=== PATIENT | male | born 1945 | race Caucasian/White ===

== ENCOUNTER 2017-08-27 12:25 | Inpatient (IN) | payer MEDICARE, OTHER ==
--- NOTE | 2017-08-27 13:32 | ER Document Report ---
ED Respiratory Problem - General Chief Complaint: Breathing Difficulty Stated Complaint: DIFFICULTY BREATHING Time Seen by Provider: 08/27/17 13:30 Notes: Patient is here because he has been coughing for the past 5 days and having a hard time breathing. He has been diagnosed as having COPD and is on home oxygen at nighttime, but continues to smoke cigarettes. He is complaining of generalized aching of the front of his chest, he attributes to coughing so hard to get up the phlegm. He is getting up a thick yellow phlegm. Has not had any fever, however. He went to a local urgent care and was found to have a low oxygen level and a low blood pressure and was referred here. Patient says he is only been drinking about a pint of fluid a day for the past few days and has had no appetite for food. Denies any nausea or vomiting. Does not have home nebs. TRAVEL OUTSIDE OF THE [place] IN LAST 30 DAYS: No - Related Data Allergies/Adverse Reactions: No Known Allergies Allergy (Verified 08/27/17 12:27) Past Medical History - Social History Smoking Status: Current Every Day Smoker Chew tobacco use (# tins/day): No Frequency of alcohol use: former Drug Abuse: None Family History: Reviewed & Not Pertinent Patient has suicidal ideation: No Patient has homicidal ideation: No - Past Medical History Cardiac Medical History: Reports: Hx Hypercholesterolemia, Hx Hypertension, Other - Has had multiple coronary artery stents. Denies: Hx Heart Attack Pulmonary Medical History: Reports: Hx Bronchitis, Hx COPD Endocrine Medical History: Denies: Hx Diabetes Mellitus Type 1, Hx Diabetes Mellitus Type 2 Past Surgical History: Reports: Hx Appendectomy, Hx Cardiac Catheterization - stents x5, Hx Tonsillectomy Review of Systems - Review of Systems Notes: REVIEW OF SYSTEMS: CONSTITUTIONAL : Denies fever. EENT: Denies eye, ear, nose or mouth or throat pain or other symptoms. CARDIOVASCULAR: See HPI. RESPIRATORY: see HPI. GASTROINTESTINAL: Denies abdominal pain or nausea, vomiting, or diarrhea. GENITOURINARY: Denies difficulty or painful urinating, urinary frequency, blood in urine. MUSCULOSKELETAL: Denies back or neck pain. Denies joint pain or swelling. SKIN: Denies rash or skin lesions. NEUROLOGICAL: Denies LOC or altered mental status. Denies headache. Denies sensory loss or motor deficits. ALL OTHER SYSTEMS REVIEWED AND NEGATIVE. Physical Exam - Vital signs Vitals: Temp Pulse Resp BP Pulse Ox 98.4 F 102 H 18 89/39 L 86 L 08/27/17 12:27 08/27/17 12:27 08/27/17 12:27 08/27/17 12:27 08/27/17 12:27 Interpretation: Hypotensive, Hypoxic - Notes Notes: PHYSICAL EXAMINATION: GENERAL: Well-appearing, in no acute distress. O2 sat and blood pressure low in triage. HEAD: Atraumatic, normocephalic. EYES: Pupils equal round and reactive to light, extraocular movements intact. ENT: oropharynx clear without exudates. Moist mucous membranes. NECK: Normal range of motion, supple. LUNGS: Breath sounds are distant and sound tight. Scattered wheezes heard. No chest wall tenderness. HEART: Regular rate and rhythm without murmurs. ABDOMEN: Soft, nontender. No guarding or rebound. No masses. BACK: No tenderness throughout entire back. EXTREMITIES: Normal range of motion without pain. No swelling and negative Homans bilaterally. NEUROLOGICAL: Normal speech, normal gait. Normal sensory, motor, and reflex exams. Awake, alert, and oriented x3. Cranial nerves normal. PSYCH: Normal mood, normal affect. SKIN: Warm, dry, no rashes. Course - Re-evaluation Re-evalutation: 08/27/17 16:41 Patient has had 2 L of fluid. He just got up to go to the bathroom and came back to the bed while I was in the room and is diaphoretic and his heart rate is picked up to 112, calculated by me at the bedside. Patient's chest x-ray shows COPD, but no pneumonia. Labs are all essentially normal. 08/27/17 17:32 Patient continues to show somewhat low blood pressure even into his third liter of saline. He also was up to the bathroom and when he came out, he was quite diaphoretic and showed significantly labored breathing. His heart rate was 112 by my count. His oxygen level on room air at that time was 88%. Spoke with the hospitalist who will admit him for further care inpatient. - Vital Signs Vital signs: Temp Pulse Resp BP Pulse Ox 98.2 F 110 H 22 H 112/72 88 L 08/27/17 16:45 08/27/17 16:45 08/27/17 16:45 08/27/17 16:45 08/27/17 16:45 - Laboratory Result Diagrams: 08/27/17 12:50 08/27/17 12:50 Laboratory results interpreted by me: 08/27/17 08/27/17 12:50 12:50 Plt Count 136 L Seg Neutrophils % 80.4 H Lymphocytes % 6.7 L Sodium 133.9 L Chloride 85 L Carbon Dioxide 34 H BUN 23 H AST 76 H - Diagnostic Test Radiology results interpreted by me: 08/27/17 16:43 Chest x-ray shows COPD and otherwise normal. No infiltrates. - EKG Interpretation by Id EKG shows normal: Sinus rhythm Rate: Normal - 102 Rhythm: NSR P Waves: ROBIN Discharge - Discharge Clinical Impression: COPD exacerbation, Hypoxia, Hypotension, Dehydration Disposition: ADMITTED OBSERVATION Admitting Provider: Hospitalist Unit Admitted: Telemetry Referrals: CLINT WOODS FNP [Primary Care Provider] - Follow up as needed
[2017-08-27] MEDS ORDERED: METHYLPREDNISOLONE INJ 125 MG/2 ML SDV IV ONE (13:33)
[2017-08-27] MEDS ORDERED: IPRATROPIUM/ALBUTEROL 0.5-2.5 MG/3 ML AMPUL NEB ONE ×2 (13:33→18:46)
--- NOTE | 2017-08-27 14:31 | RADIOLOGY REPORT (SQ) ---
EXAM DESCRIPTION: CHEST PA/LAT COMPLETED DATE/TIME: 08/27/2017 2:20 pm REASON FOR STUDY: COPD, congestion, low O2 COMPARISON: 08/29/2009. NUMBER OF VIEWS: Two view. TECHNIQUE: Frontal and lateral radiographic views of the chest acquired. LIMITATIONS: None. FINDINGS: LUNGS AND PLEURA: No opacities, masses or pneumothorax. No pleural effusion. Attenuated bl ood vessels and flattened rodríguez-diaphragms. MEDIASTINUM AND HILAR STRUCTURES: No masses. No contour abnormalities. HEART AND VASCULAR STRUCTURES: Heart normal in size and contour. No evidence for failure. BONES: No acute findings. HARDWARE: None in the chest. OTHER: No other significant finding. IMPRESSION: COPD. NO ACUTE RADIOGRAPHIC FINDING IN THE CHEST. TECHNICAL DOCUMENTATION: JOB ID: [id number] [employer]- All Rights Reserved
[2017-08-27] MEDS ORDERED: ALBUTEROL SULFATE 0.083% NEB 2.5 MG/3 ML AMPUL NEB ONE (14:50)
[2017-08-27] MEDS: NORMAL SALINE 1000 ML 1,000 ML IV PRN ×2 (14:51→14:59)
[2017-08-27 15:18] LABS: ABSOLUTE LYMPHOCYTES (AUTO) 0.5 10^3/uL (0.5-4.7); ABSOLUTE MONOCYTES (AUTO) 0.9 10^3/uL (0.1-1.4); ABSOLUTE NEUT (AUTO) 5.7 10^3/uL (1.7-8.2); BASOPHILS % (AUTO) 0.2 % (0-2); HEMOGLOBIN 16.6 g/dL (13.5-17.0); LYMPHOCYTES % (AUTO) 6.7 % (13-45); MEAN CORPUSCULAR HEMOGLOBIN 30.3 pg (27.0-33.4); MEAN CORPUSCULAR HGB CONC 33.2 g/dL (32.0-36.0); MEAN CORPUSCULAR VOLUME 91 fl (80-97); MONOCYTES % (AUTO) 12.7 % (3-13); PLATELET COUNT 136 10^3/uL (150-450); RED BLOOD COUNT 5.47 10^6/uL (4.35-5.55); RED CELL DISTRIBUTION WIDTH 13.8 % (11.5-14.0); SEGMENTED NEUTROPHILS % (AUTO) 80.4 % (42-78); TOTAL CELLS COUNTED % (AUTO) 100 %; WHITE BLOOD COUNT 7.1 10^3/uL (4.0-10.5)
[2017-08-27 15:29] LABS: ALANINE AMINOTRANSFERASE 55 U/L (21-72); ALBUMIN 4.1 g/dL (3.5-5.0); ALKALINE PHOSPHATASE 87 U/L (38-126); ANION GAP 15 (5-19); ASPARTATE AMINO TRANSFERASE 76 U/L (17-59); BILIRUBIN,DIRECT 0.4 mg/dL (0.0-0.4); BILIRUBIN,TOTAL 0.5 mg/dL (0.2-1.3); BLOOD UREA NITROGEN 23 mg/dL (7-20); CALCIUM 9.1 mg/dL (8.4-10.2); CARBON DIOXIDE 34 mmol/L (22-30); CHLORIDE 85 mmol/L (98-107); GLUCOSE 109 mg/dL (75-110); POTASSIUM 4.2 mmol/L (3.6-5.0); SODIUM 133.9 mmol/L (137-145)
[2017-08-27 15:41] LABS: CREATINE KINASE MB 2.11 ng/mL (<4.55)
[2017-08-27 15:47] LABS: TROPONIN I 0.092 ng/mL
[2017-08-27] MEDS ORDERED: CEFTRIAXONE 1 GM/D5W RTU 1 GM/50 ML RTUPB IV ONE (17:31)
[2017-08-27] MEDS ORDERED: NORMAL SALINE 1000 ML 1,000 ML IV ONE (17:44)
[2017-08-27] MEDS ORDERED: 1/2 NORMAL SALINE 1,000 ML IV PRN (19:03)
[2017-08-27] MEDS ORDERED: ACETAMINOPHEN 325 MG TABLET PO PRN (19:03)
[2017-08-27] MEDS ORDERED: ALBUTEROL SULFATE 0.083% NEB 2.5 MG/3 ML AMPUL NEB PRN (19:03)
--- NOTE | 2017-08-27 19:03 | PDOC H&P ---
History of Present Illness Admission Date/PCP: 08/27/17 17:58 AZAEL YOUNG History of Present Illness: LISA AVILA is a 71 year old male who presented to the emergency department after being referred by the urgent care clinic for hypotension and hypoxemia. The patient has known COPD. He believes that he is supposed to be taking Brio, but, he has been unable to afford this medication and therefore he is only using Ventolin. Patient is a long-term smoker. He has cut back from greater than a pack per day to about three quarters of a pack per day. Over the last 3 days he has had increasing cough with increasing shortness of breath. His cough is purulent and he is coughing up thick, yellow phlegm. He has not had any hemoptysis. He does not have a fever and he does not have a sore throat. He has no pain with swallowing. He has no nausea, vomiting or diarrhea but he has been eating very poorly. When his daughter took him to the urgent care clinic she stated that his nose looked blue. The patient also has a significant coronary history and has had 5 stents placed in the past. His out of school hours care worker is Dr. Sharma at [facility]. Currently, the patient and his family are unable to provide me with the medication list. The patient's daughter is going to bring the medication list to the hospital as soon as possible. Past Medical History Cardiac Medical History: Reports: Coronary Artery Disease, Hyperlipidema, Hypertension, Other - Has had multiple coronary artery stents. Denies: Myocardial Infarction Pulmonary Medical History: Reports: Bronchitis, Chronic Obstructive Pulmonary Disease (COPD) Endocrine Medical History: Denies: Diabetes Mellitus Type 1, Diabetes Mellitus Type 2 Past Surgical History Past Surgical History: Reports: Appendectomy, Cardiac Catheterization - stents x5, Tonsillectomy Social History Smoking Status: Current Every Day Smoker - Advance Directive Resuscitation Status: Full Code Surrogate healthcare decision maker:: The patient appoints his , Angie Avila to be his surrogate decision maker. She can be reached at [phone]. Family History Family History: Reviewed & Not Pertinent Parental Family History Reviewed: Yes Children Family History Reviewed: Yes Sibling(s) Family History Reviewed.: Yes - Mother age 53 of bone cancer, father age 60 of congestive heart failure, 2 brothers have coronary artery disease and a daughter has hypertension. Medication/Allergy Allergies/Adverse Reactions: No Known Allergies Allergy (Verified 08/27/17 12:27) Review of Systems Constitutional: PRESENT: anorexia, fatigue, weakness Eyes: ABSENT: as per HPI, visual disturbances, other Ears: ABSENT: as per HPI, hearing changes, other Nose, Mouth, and Throat: ABSENT: as per HPI, headache(s), mouth pain, sore throat, vertigo, other Breasts: ABSENT: as per HPI, other Cardiovascular: ABSENT: as per HPI, chest pain, dyspnea on exertion, edema, orthropnea, palpitations, other Respiratory: PRESENT: cough, dyspnea, sputum Gastrointestinal: ABSENT: as per HPI, abdominal pain, bloating, coffee ground emesis, constipation, diarrhea, dysphagia, heartburn, hematemesis, hematochezia , melena, nausea, vomiting, other Genitourinary: ABSENT: as per HPI, difficulty urinating, dysuria, hematuria, nocturia, other Musculoskeletal: ABSENT: as per HPI, back pain, deformity, joint swelling, muscle weakness, other Neurological: ABSENT: as per HPI, abnormal gait, abnormal movements, abnormal speech, confusion, convulsions, dizziness, focal weakness, frequent falls, lack of coordination, memory loss, numbness, paresthesias, restless legs, syncope, tingling, tremor(s), vertigo, weakness, other Psychiatric: ABSENT: as per HPI, anxiety, depression, hallucinations, homidical ideation, suicidal ideation, other Endocrine: ABSENT: as per HPI, cold intolerance, flushing, heat intolerance, menstrual abnormalities, polydipsia, polyphagia, polyuria, other Hematologic/Lymphatic: ABSENT: as per HPI, easy bleeding, easy bruising, lymphadenopathy, other Allergic/Immunologic: ABSENT: as per HPI, seasonal rhinorrhea, other Physical Exam Vital Signs: Temp Pulse Resp BP Pulse Ox 98.2 F 110 H 22 H 112/72 88 L 08/27/17 16:45 08/27/17 16:45 08/27/17 16:45 08/27/17 16:45 08/27/17 16:45 Additional comments: The patient appears to be older than his stated age. He appears to be in chronically poor health. He is alert and oriented. He appears to be in good spirits. His facial appearance is unremarkable. He does have both upper and lower dentures. Otherwise, his oropharynx is benign. His neck is supple. He does not have JVD. His trachea is midline. He does not have any palpable cervical adenopathy present. His lungs are fairly diminished but he does have end expiratory wheezing present in all lung bhatia. His cardiac exam is regular. I do not appreciate any murmurs, gallops or rubs. The abdomen is soft. Bowel sounds are present. There is no guarding or rebound noted and there are no hernias or masses present. The lower extremities are warm to touch without pitting edema. The skin is warm, dry and intact without lesions or rashes. Results Impressions: Chest X-Ray 08/27/17 13:32 IMPRESSION: COPD. NO ACUTE RADIOGRAPHIC FINDING IN THE CHEST. Assessment & Plan - Diagnosis (1) COPD exacerbation Is this a current diagnosis for this admission?: Yes Plan: Patient clearly has a COPD exacerbation. He will be treated with antibiotics, systemic corticosteroids and bronchodilators. (2) Dehydration Is this a current diagnosis for this admission?: Yes Plan: Continue IV fluid replacement. (3) Hypotension Is this a current diagnosis for this admission?: Yes Plan: Hold blood pressure medications. Treat with IV fluids overnight. (4) Hypoxia Is this a current diagnosis for this admission?: Yes Plan: Treat with supplemental oxygen, but, we do not want high oxygen saturations. Want them in the low 90s. (5) Pneumonia Is this a current diagnosis for this admission?: Yes Plan: The patient has gram-positive cocci in pairs and chains on sputum culture. This is suspicious for pneumococcal bronchitis or pneumonia. He will be started empirically on therapy for community-acquired pneumonia pending cultures. Chest x-ray is fairly unremarkable, however, he is hypotensive. He may in fact develop an infiltrate after he is fluid resuscitated. (6) Elevated liver function tests Is this a current diagnosis for this admission?: Yes Plan: AST is elevated. This could be medication effect. We will need to trend labs. (7) Sinus tachycardia by electrocardiogram Is this a current diagnosis for this admission?: Yes Plan: Sinus tachycardia is an appropriate response to hypotension. In addition, his tachycardia is likely associated with his current illness. - Time Time Spent: 50 to 70 Minutes - Inpatient Certification Medical Necessity: Significant Comorbidiites Make Outpatient Treatment Too Risky , Need Close Monitoring Due to Risk of Patient Decompensation, Need For IV Fluids, Need For Continuous Telemetry Monitoring, Need for IV Antibiotics - Plan Summary Plan Summary: She will be placed on inpatient status. Clearly, he will need greater than 2 midnights to correct his hypotension, COPD exacerbation and potential pneumonia.
[2017-08-27] MEDS ORDERED: METHYLPREDNISOLONE INJ 125 MG/2 ML SDV IV SCH (19:30)
[2017-08-27] MEDS: IPRATROPIUM/ALBUTEROL 0.5-2.5 MG/3 ML AMPUL NEB SCH ×2 (19:46→20:00)
[2017-08-27] MEDS ORDERED: ENOXAPARIN SODIUM INJ 40 MG/0.4 ML DISP.SYRIN SUBCUT ONE (20:30)
[2017-08-27 20:33] LABS: CREATINE KINASE MB 2.89 ng/mL (<4.55); TROPONIN I 0.083 ng/mL
[2017-08-27 20:40] LABS: A TYPE INFLUENZA AG NEGATIVE (NEGATIVE); B INFLUENZA AG NEGATIVE (NEGATIVE)
[2017-08-27] MEDS: GUAIFENESIN 600 MG TABLET.SA PO SCH (21:33)
[2017-08-27] MEDS: FAMOTIDINE 20 MG TABLET PO SCH (21:34)
[2017-08-27] MEDS: METHYLPREDNISOLONE INJ 40 MG/1 ML SDV IV SCH (21:35)
[2017-08-27] MEDS ORDERED: AZITHROMYCIN 500 MG in DEXTROSE 5%-WATER 250 ML IV SCH (22:00)
[2017-08-27 22:19] LABS: APPEARANCE,URINE SLIGHTLY-CLOUDY; BILIRUBIN,URINE NEGATIVE (NEGATIVE); COLOR,URINE YELLOW; GLUCOSE, URINE NEGATIVE (NEGATIVE); KETONES,URINE NEGATIVE (NEGATIVE); LEUKOCYTE ESTERASE,URINE NEGATIVE (NEGATIVE); NITRITE,URINE NEGATIVE (NEGATIVE); PROTEIN,URINE NEGATIVE (NEGATIVE); URINE SPECIFIC GRAVITY 1.017; UROBILINOGEN,URINE NEGATIVE mg/dL (<2.0)
[2017-08-28 02:14] LABS: CREATINE KINASE MB 4.07 ng/mL (<4.55); TROPONIN I 0.063 ng/mL
[2017-08-28] MEDS: METHYLPREDNISOLONE INJ 40 MG/1 ML SDV IV SCH ×3 (05:59→22:47)
[2017-08-28] MEDS: IPRATROPIUM/ALBUTEROL 0.5-2.5 MG/3 ML AMPUL NEB SCH ×3 (08:25→19:57)
[2017-08-28 09:17] LABS: CREATINE KINASE MB 5.31 ng/mL (<4.55); TROPONIN I 0.11 ng/mL
[2017-08-28] MEDS: ENOXAPARIN SODIUM INJ 40 MG/0.4 ML DISP.SYRIN SUBCUT SCH (10:06)
[2017-08-28] MEDS: ASPIRIN 81 MG TABLET, ENT COATED PO SCH (10:07)
[2017-08-28] MEDS: FAMOTIDINE 20 MG TABLET PO SCH ×2 (10:07→22:47)
[2017-08-28] MEDS: GUAIFENESIN 600 MG TABLET.SA PO SCH ×2 (10:07→22:47)
[2017-08-28] MEDS: NORMAL SALINE 1000 ML 1,000 ML IV PRN (10:08)
--- NOTE | 2017-08-28 10:35 | EKG REPORT ---
SEVERITY:- ABNORMAL ECG - SINUS TACHYCARDIA RIGHT ATRIAL ABNORMALITY LEFT ANTERIOR FASCICULAR BLOCK CONSIDER ANTEROSEPTAL INFARCT : Confirmed by: Elina Peter 28-Aug-2017 10:34:52
[2017-08-28] MEDS ORDERED: CEFTRIAXONE 1 GM/D5W RTU 1 GM/50 ML RTUPB IV SCH (18:00)
--- NOTE | 2017-08-28 19:11 | EKG REPORT ---
SEVERITY:- ABNORMAL ECG - SINUS RHYTHM LEFT ANTERIOR FASCICULAR BLOCK LOW VOLTAGE THROUGHOUT CONSIDER ANTEROSEPTAL INFARCT : Confirmed by: Elina Peter 28-Aug-2017 19:10:37
[2017-08-28] MEDS: LEVOFLOXACIN 750 MG/D5W RTU 750 MG/150 ML RTUPB IV SCH (20:33)
[2017-08-28] MEDS: CEFEPIME 1 GM/D5W RTU 1 GM/50 ML RTUPB IV SCH (22:47)
[2017-08-29] MEDS: METHYLPREDNISOLONE INJ 40 MG/1 ML SDV IV SCH ×2 (05:11→14:21)
[2017-08-29 05:33] LABS: ABSOLUTE LYMPHOCYTES (AUTO) 0.4 10^3/uL (0.5-4.7); ABSOLUTE MONOCYTES (AUTO) 0.6 10^3/uL (0.1-1.4); ABSOLUTE NEUT (AUTO) 5.4 10^3/uL (1.7-8.2); BASOPHILS % (AUTO) 0.1 % (0-2); HEMATOCRIT 42.6 % (37.9-51.0); LYMPHOCYTES % (AUTO) 6.4 % (13-45); MEAN CORPUSCULAR HEMOGLOBIN 29.7 pg (27.0-33.4); MEAN CORPUSCULAR HGB CONC 32.6 g/dL (32.0-36.0); MEAN CORPUSCULAR VOLUME 91 fl (80-97); MONOCYTES % (AUTO) 9.1 % (3-13); RED BLOOD COUNT 4.67 10^6/uL (4.35-5.55); RED CELL DISTRIBUTION WIDTH 13.5 % (11.5-14.0); SEGMENTED NEUTROPHILS % (AUTO) 84.4 % (42-78); TOTAL CELLS COUNTED % (AUTO) 100 %; WHITE BLOOD COUNT 6.4 10^3/uL (4.0-10.5)
[2017-08-29 05:45] LABS: ANION GAP 6 (5-19); BLOOD UREA NITROGEN 15 mg/dL (7-20); CALCIUM 8.1 mg/dL (8.4-10.2); CARBON DIOXIDE 36 mmol/L (22-30); CHLORIDE 93 mmol/L (98-107); GLUCOSE 117 mg/dL (75-110); MAGNESIUM 2.3 mg/dL (1.6-2.3); POTASSIUM 4.6 mmol/L (3.6-5.0)
[2017-08-29 05:53] LABS: HEMOGLOBIN 13.9 g/dL (13.5-17.0)
[2017-08-29 05:54] LABS: PLATELET COUNT 82 10^3/uL (150-450)
[2017-08-29] MEDS: IPRATROPIUM/ALBUTEROL 0.5-2.5 MG/3 ML AMPUL NEB SCH ×4 (08:57→19:51)
[2017-08-29] MEDS: GUAIFENESIN 600 MG TABLET.SA PO SCH ×2 (10:57→21:50)
[2017-08-29] MEDS: FAMOTIDINE 20 MG TABLET PO SCH ×2 (10:57→21:51)
[2017-08-29] MEDS: ASPIRIN 81 MG TABLET, ENT COATED PO SCH (10:57)
[2017-08-29] MEDS: CEFEPIME 1 GM/D5W RTU 1 GM/50 ML RTUPB IV SCH ×2 (10:57→21:51)
[2017-08-29] MEDS: ENOXAPARIN SODIUM INJ 40 MG/0.4 ML DISP.SYRIN SUBCUT SCH (10:58)
[2017-08-29] MEDS: NORMAL SALINE 1000 ML 1,000 ML IV PRN (14:09)
[2017-08-29 15:21] LABS: ARTERIAL BLOOD BASE EXCESS 9.3 mmol/L; ARTERIAL BLOOD H2CO3 2.87 mmol/L (1.05-1.35); ARTERIAL BLOOD HCO3 40.9 mmol/L (20-26); ARTERIAL BLOOD O2 SATURATION 89.6 % (94-98); ARTERIAL BLOOD PH 7.25 (7.35-7.45); ARTERIAL BLOOD PO2 68.8 mmHg (80-100); ARTERIAL BLOOD TOTAL CO2 43.9 mmol/L (23-27)
[2017-08-29 15:58] LABS: ARTERIAL BLOOD FIO2 4L
[2017-08-29 16:00] LABS: ARTERIAL BLOOD PCO2 95.5 mmHg (35-45)
--- NOTE | 2017-08-29 17:20 | PDOC PROGRESS REPORT ---
Subjective Progress Note for:: 08/29/17 Subjective:: Patient was extremely confused this morning ABG'S were drawn , and ph was 7.25 with pCO2 over 90 BIPAP support was initiated Reason For Visit: PNEUMONIA, COPD EXACERBATION Physical Exam Vital Signs: Temp Pulse Resp BP Pulse Ox 98.3 F 104 H 16 123/67 96 08/29/17 13:11 08/29/17 14:00 08/29/17 13:11 08/29/17 13:11 08/29/17 13:11 Intake & Output 08/28/17 08/29/17 08/30/17 00:59 00:59 00:59 Intake Total 500 100 Balance 500 100 Weight 60.1 kg General appearance: PRESENT: cooperative, mild distress, thin Head exam: PRESENT: atraumatic, normocephalic Eye exam: PRESENT: conjunctiva pink, EOMI, PERRLA. ABSENT: scleral icterus Neck exam: ABSENT: carotid bruit, JVD, lymphadenopathy, thyromegaly Respiratory exam: PRESENT: decreased breath sounds, wheezes. ABSENT: accessory muscle use Cardiovascular exam: PRESENT: RRR. ABSENT: diastolic murmur, rubs, systolic murmur Pulses: PRESENT: normal dorsalis pedis pul GI/Abdominal exam: PRESENT: normal bowel sounds, soft. ABSENT: distended, guarding, mass, organolmegaly, rebound, tenderness Results Laboratory Results: 08/29/17 04:22 08/29/17 04:22 08/29/17 08/29/17 08/29/17 04:22 04:22 15:05 WBC 6.4 RBC 4.67 Hgb 13.9 D Hct 42.6 MCV 91 MCH 29.7 MCHC 32.6 RDW 13.5 Plt Count 82 L Seg Neutrophils % 84.4 H Lymphocytes % 6.4 L Monocytes % 9.1 Eosinophils % 0.0 Basophils % 0.1 Absolute Neutrophils 5.4 Absolute Lymphocytes 0.4 L Absolute Monocytes 0.6 Absolute Eosinophils 0.0 Absolute Basophils 0.0 Carbonic Acid 2.87 H HCO3/H2CO3 Ratio 14:1 ABG pH 7.25 L ABG pCO2 95.5 H* ABG pO2 68.8 L ABG HCO3 40.9 H ABG O2 Saturation 89.6 L ABG Base Excess 9.3 FiO2 4L Sodium 135.0 L Potassium 4.6 Chloride 93 L Carbon Dioxide 36 H Anion Gap 6 BUN 15 Creatinine 0.59 Est GFR ( Amer) > 60 Est GFR (Non-Af Amer) > 60 Glucose 117 H Calcium 8.1 L Magnesium 2.3 08/27/17 08/27/17 08/28/17 19:44 19:44 01:40 Creatine Kinase 126 183 H CK-MB (CK-2) 2.89 Troponin I 0.083 08/28/17 08/28/17 08/28/17 01:40 08:28 08:28 Creatine Kinase 254 H CK-MB (CK-2) 4.07 5.31 H Troponin I 0.063 0.110 EKG Comments: ST] . SINUS TACHYCARDIA [RAA] . RIGHT ATRIAL ABNORMALITY [LAFB] . LEFT ANTERIOR FASCICULAR BLOCK [AMI8] . CONSIDER ANTEROSEPTAL INFARCT Impressions: Chest X-Ray 08/27/17 13:32 IMPRESSION: COPD. NO ACUTE RADIOGRAPHIC FINDING IN THE CHEST. Assessment & Plan - Diagnosis (1) Respiratory failure Qualifiers: Chronicity: acute on chronic Respiratory failure complication: hypoxia and hypercapnia Qualified Code(s): J96.21 - Acute and chronic respiratory failure with hypoxia; J96.22 - Acute and chronic respiratory failure with hypercapnia; J96.22 - Acute and chronic respiratory failure with hypercapnia; J96.22 - Acute and chronic respiratory failure with hypercapnia Is this a current diagnosis for this admission?: Yes Plan: secondary to COPD exacerbation and gram negative pneumonia Patient will be kept on BIPAP support increase steroids continue antibiotics follow up ABG'S in a couple hours (2) COPD exacerbation Is this a current diagnosis for this admission?: Yes (3) Elevated liver function tests Is this a current diagnosis for this admission?: Yes (4) Pneumonia Qualifiers: Pneumonia type: due to other aerobic Gram-negative bacteria Laterality: unspecified laterality Lung location: unspecified part of lung Qualified Code(s): J15.6 - Pneumonia due to other Gram-negative bacteria Is this a current diagnosis for this admission?: Yes Plan: continue cefepime and levaquin (5) Elevated troponin Is this a current diagnosis for this admission?: Yes Plan: likely secondary to hypoxemia Patient had no chest pain EKG shows old ant lateral [place] will repeat EKG in am , prescribe ASA , lipitor stress testing may be indicated when patient is clinically improved
[2017-08-29] MEDS ORDERED: ASPIRIN 81 MG TABLET, ENT COATED PO SCH (17:39)
[2017-08-29] MEDS ORDERED: METHYLPREDNISOLONE INJ 40 MG/1 ML SDV IV SCH (17:39)
[2017-08-29] MEDS: BUDESONIDE NEB 0.5 MG/2 ML AMPUL NEB SCH (19:50)
[2017-08-29 20:07] LABS: ARTERIAL BLOOD BASE EXCESS 11.4 mmol/L; ARTERIAL BLOOD H2CO3 2.39 mmol/L (1.05-1.35); ARTERIAL BLOOD O2 SATURATION 63.2 % (94-98); ARTERIAL BLOOD PH 7.33 (7.35-7.45); ARTERIAL BLOOD TOTAL CO2 43.4 mmol/L (23-27)
[2017-08-29 20:08] LABS: ARTERIAL BLOOD FIO2 35%
[2017-08-29 20:13] LABS: ARTERIAL BLOOD PCO2 79.3 mmHg (35-45); ARTERIAL BLOOD PO2 36.7 mmHg (80-100)
[2017-08-29] MEDS: METHYLPREDNISOLONE INJ 125 MG/2 ML SDV IV SCH (21:51)
[2017-08-29] MEDS: LEVOFLOXACIN 750 MG/D5W RTU 750 MG/150 ML RTUPB IV SCH (21:51)
[2017-08-30] MEDS: METHYLPREDNISOLONE INJ 125 MG/2 ML SDV IV SCH ×3 (05:56→21:27)
[2017-08-30 06:13] LABS: ANION GAP 6 (5-19); BLOOD UREA NITROGEN 21 mg/dL (7-20); CALCIUM 8.3 mg/dL (8.4-10.2); CARBON DIOXIDE 38 mmol/L (22-30); CHLORIDE 93 mmol/L (98-107); GLUCOSE 127 mg/dL (75-110); MAGNESIUM 2.6 mg/dL (1.6-2.3); POTASSIUM 4.7 mmol/L (3.6-5.0); SODIUM 136.6 mmol/L (137-145)
[2017-08-30 06:25] LABS: ABSOLUTE LYMPHOCYTES (AUTO) 0.5 10^3/uL (0.5-4.7); ABSOLUTE MONOCYTES (AUTO) 0.7 10^3/uL (0.1-1.4); ABSOLUTE NEUT (AUTO) 3.9 10^3/uL (1.7-8.2); BASOPHILS % (AUTO) 0.1 % (0-2); EOSINOPHILS % (AUTO) 0.1 % (0-6); HEMATOCRIT 41.6 % (37.9-51.0); HEMOGLOBIN 13.6 g/dL (13.5-17.0); LYMPHOCYTES % (AUTO) 8.9 % (13-45); MEAN CORPUSCULAR HEMOGLOBIN 29.8 pg (27.0-33.4); MEAN CORPUSCULAR HGB CONC 32.6 g/dL (32.0-36.0); MEAN CORPUSCULAR VOLUME 91 fl (80-97); MONOCYTES % (AUTO) 14.4 % (3-13); RED BLOOD COUNT 4.55 10^6/uL (4.35-5.55); SEGMENTED NEUTROPHILS % (AUTO) 76.5 % (42-78); TOTAL CELLS COUNTED % (AUTO) 100 %; WHITE BLOOD COUNT 5.1 10^3/uL (4.0-10.5)
[2017-08-30 06:30] LABS: PLATELET COUNT 77 10^3/uL (150-450)
[2017-08-30] MEDS: BUDESONIDE NEB 0.5 MG/2 ML AMPUL NEB SCH ×2 (08:34→19:48)
[2017-08-30] MEDS: IPRATROPIUM/ALBUTEROL 0.5-2.5 MG/3 ML AMPUL NEB SCH ×4 (08:34→19:48)
[2017-08-30] MEDS: GUAIFENESIN 600 MG TABLET.SA PO SCH (10:41)
[2017-08-30] MEDS: FAMOTIDINE 20 MG TABLET PO SCH ×2 (10:41→21:27)
[2017-08-30] MEDS: ASPIRIN 325 MG TABLET, ENT COATED PO SCH (10:41)
[2017-08-30] MEDS: ENOXAPARIN SODIUM INJ 40 MG/0.4 ML DISP.SYRIN SUBCUT SCH (10:42)
[2017-08-30] MEDS: CEFEPIME 1 GM/D5W RTU 1 GM/50 ML RTUPB IV SCH ×2 (10:42→21:27)
--- NOTE | 2017-08-30 11:14 | PDOC PROGRESS REPORT ---
Subjective Progress Note for:: 08/30/17 Subjective:: Patient was in severe respiratory distress yesterday; confused lethargic; In acute respiratory acidosis Improved with BiPAP This morning is alert awake BiPAP may be removed; he appears comfortable on nasal cannula Reason For Visit: PNEUMONIA, COPD EXACERBATION Physical Exam Vital Signs: Temp Pulse Resp BP Pulse Ox 98.3 F 86 16 110/61 99 08/30/17 08:55 08/30/17 08:55 08/30/17 08:55 08/30/17 08:55 08/30/17 08:55 Intake & Output 08/29/17 08/30/17 08/31/17 00:59 00:59 00:59 Intake Total 500 1500 1370 Balance 500 1500 1370 Weight 60.1 kg 65.2 kg General appearance: PRESENT: no acute distress, thin, other - Looks chronically ill Head exam: PRESENT: atraumatic, normocephalic Eye exam: PRESENT: conjunctiva pink, EOMI, PERRLA. ABSENT: scleral icterus Respiratory exam: PRESENT: decreased breath sounds, wheezes. ABSENT: accessory muscle use Cardiovascular exam: PRESENT: RRR. ABSENT: diastolic murmur, rubs, systolic murmur GI/Abdominal exam: PRESENT: normal bowel sounds, soft. ABSENT: distended, guarding, mass, organolmegaly, rebound, tenderness Extremities exam: PRESENT: full ROM. ABSENT: calf tenderness, clubbing, pedal edema Neurological exam: PRESENT: alert, awake, oriented to person, oriented to place , oriented to time, oriented to situation, CN II-XII grossly intact. ABSENT: motor sensory deficit Results Laboratory Results: 08/30/17 04:20 08/30/17 04:20 08/29/17 08/29/17 08/30/17 15:05 20:00 04:20 WBC 5.1 RBC 4.55 Hgb 13.6 Hct 41.6 MCV 91 MCH 29.8 MCHC 32.6 RDW 14.0 Plt Count 77 L Seg Neutrophils % 76.5 Lymphocytes % 8.9 L Monocytes % 14.4 H Eosinophils % 0.1 Basophils % 0.1 Absolute Neutrophils 3.9 Absolute Lymphocytes 0.5 Absolute Monocytes 0.7 Absolute Eosinophils 0.0 Absolute Basophils 0.0 Carbonic Acid 2.87 H 2.39 H HCO3/H2CO3 Ratio 14:1 17:1 ABG pH 7.25 L 7.33 L ABG pCO2 95.5 H* 79.3 H* ABG pO2 68.8 L 36.7 L* ABG HCO3 40.9 H 41.0 H ABG O2 Saturation 89.6 L 63.2 L ABG Base Excess 9.3 11.4 FiO2 4L 35% Sodium Potassium Chloride Carbon Dioxide Anion Gap BUN Creatinine Est GFR ( Amer) Est GFR (Non-Af Amer) Glucose Calcium Magnesium 08/30/17 04:20 WBC RBC Hgb Hct MCV MCH MCHC RDW Plt Count Seg Neutrophils % Lymphocytes % Monocytes % Eosinophils % Basophils % Absolute Neutrophils Absolute Lymphocytes Absolute Monocytes Absolute Eosinophils Absolute Basophils Carbonic Acid HCO3/H2CO3 Ratio ABG pH ABG pCO2 ABG pO2 ABG HCO3 ABG O2 Saturation ABG Base Excess FiO2 Sodium 136.6 L Potassium 4.7 Chloride 93 L Carbon Dioxide 38 H Anion Gap 6 BUN 21 H Creatinine 0.54 Est GFR ( Amer) > 60 Est GFR (Non-Af Amer) > 60 Glucose 127 H Calcium 8.3 L Magnesium 2.6 H 08/27/17 08/27/17 08/28/17 19:44 19:44 01:40 Creatine Kinase 126 183 H CK-MB (CK-2) 2.89 Troponin I 0.083 08/28/17 08/28/17 08/28/17 01:40 08:28 08:28 Creatine Kinase 254 H CK-MB (CK-2) 4.07 5.31 H Troponin I 0.063 0.110 Impressions: Chest X-Ray 08/27/17 13:32 IMPRESSION: COPD. NO ACUTE RADIOGRAPHIC FINDING IN THE CHEST. Assessment & Plan - Diagnosis (1) Respiratory failure Qualifiers: Chronicity: acute on chronic Respiratory failure complication: hypoxia and hypercapnia Qualified Code(s): J96.21 - Acute and chronic respiratory failure with hypoxia; J96.22 - Acute and chronic respiratory failure with hypercapnia; J96.22 - Acute and chronic respiratory failure with hypercapnia; J96.22 - Acute and chronic respiratory failure with hypercapnia Is this a current diagnosis for this admission?: Yes Plan: Respiratory failure secondary to pneumonia and COPD exacerbation Continue present management BiPAP as needed (2) COPD exacerbation Is this a current diagnosis for this admission?: Yes Plan: Increase steroids (3) Elevated liver function tests Is this a current diagnosis for this admission?: Yes (4) Pneumonia Qualifiers: Pneumonia type: due to other aerobic Gram-negative bacteria Laterality: unspecified laterality Lung location: unspecified part of lung Qualified Code(s): J15.6 - Pneumonia due to other Gram-negative bacteria Is this a current diagnosis for this admission?: Yes Plan: Gram-negative pneumonia Pseudomonas and E. coli were isolated in the sputum Continue cefepime and Levaquin (5) Elevated troponin Is this a current diagnosis for this admission?: Yes Plan: likely secondary to hypoxemia Patient had no chest pain EKG shows old ant lateral [place] will repeat EKG in am , prescribe ASA , lipitor stress testing may be indicated when patient is clinically improved - Time Time Spent with patient: 25-34 minutes - Plan Summary Plan Summary: Patient is clinically improved since yesterday
[2017-08-30] MEDS ORDERED: NORMAL SALINE 1000 ML 1,000 ML IV PRN (17:30)
[2017-08-30] MEDS: ATORVASTATIN CALCIUM 80 MG TABLET PO SCH (17:52)
[2017-08-30] MEDS: LEVOFLOXACIN 750 MG TABLET PO SCH (21:27)
[2017-08-31] MEDS: METHYLPREDNISOLONE INJ 125 MG/2 ML SDV IV SCH ×3 (06:25→21:09)
[2017-08-31] MEDS: BUDESONIDE NEB 0.5 MG/2 ML AMPUL NEB SCH ×2 (08:30→20:16)
[2017-08-31] MEDS: IPRATROPIUM/ALBUTEROL 0.5-2.5 MG/3 ML AMPUL NEB SCH ×4 (08:30→20:16)
[2017-08-31] MEDS: FAMOTIDINE 20 MG TABLET PO SCH ×2 (10:00→21:09)
[2017-08-31] MEDS: CEFEPIME 1 GM/D5W RTU 1 GM/50 ML RTUPB IV SCH (10:00)
[2017-08-31] MEDS: ASPIRIN 325 MG TABLET, ENT COATED PO SCH (10:33)
[2017-08-31] MEDS: ENOXAPARIN SODIUM INJ 40 MG/0.4 ML DISP.SYRIN SUBCUT SCH (10:33)
--- NOTE | 2017-08-31 14:48 | PDOC PROGRESS REPORT ---
Subjective Progress Note for:: 08/31/17 Subjective:: Patient with acute bronchitis and COPD exacerbation. Patient feeling better today. Patient does not want to be placed back on bipap. He states he feels as if he is choking. Patient states that he is easily fatigued with activity. This is unusual for him. Reason For Visit: PNEUMONIA, COPD EXACERBATION Physical Exam Vital Signs: Temp Pulse Resp BP Pulse Ox 97.6 F 86 14 143/81 H 91 L 08/31/17 08:00 08/31/17 14:00 08/31/17 12:43 08/31/17 08:00 08/31/17 08:30 Intake & Output 08/30/17 08/31/17 09/01/17 06:59 06:59 06:59 Intake Total 2770 2720 Balance 2770 2720 Weight 65.2 kg 65.9 kg General appearance: PRESENT: no acute distress, well-developed, well-nourished Head exam: PRESENT: atraumatic, normocephalic Eye exam: PRESENT: conjunctiva pink, EOMI, PERRLA. ABSENT: scleral icterus Ear exam: PRESENT: normal external ear exam Mouth exam: PRESENT: moist, tongue midline Neck exam: ABSENT: carotid bruit, JVD, lymphadenopathy, thyromegaly Respiratory exam: PRESENT: clear to auscultation patrice, decreased breath sounds, unlabored. ABSENT: rales, rhonchi, wheezes Cardiovascular exam: PRESENT: RRR. ABSENT: diastolic murmur, rubs, systolic murmur Pulses: PRESENT: normal dorsalis pedis pul Vascular exam: PRESENT: normal capillary refill GI/Abdominal exam: PRESENT: normal bowel sounds, soft. ABSENT: distended, guarding, mass, organolmegaly, rebound, tenderness Rectal exam: PRESENT: deferred Extremities exam: PRESENT: full ROM. ABSENT: calf tenderness, clubbing, pedal edema Neurological exam: PRESENT: alert, awake, oriented to person, oriented to place , oriented to time, oriented to situation, CN II-XII grossly intact. ABSENT: motor sensory deficit Psychiatric exam: PRESENT: appropriate affect, normal mood. ABSENT: homicidal ideation, suicidal ideation Skin exam: PRESENT: dry, intact, warm. ABSENT: cyanosis, rash Results Laboratory Results: 08/30/17 04:20 08/30/17 04:20 08/27/17 08/27/17 08/28/17 19:44 19:44 01:40 Creatine Kinase 126 183 H CK-MB (CK-2) 2.89 Troponin I 0.083 08/28/17 08/28/17 08/28/17 01:40 08:28 08:28 Creatine Kinase 254 H CK-MB (CK-2) 4.07 5.31 H Troponin I 0.063 0.110 Impressions: Chest X-Ray 08/27/17 13:32 IMPRESSION: COPD. NO ACUTE RADIOGRAPHIC FINDING IN THE CHEST. Assessment & Plan - Diagnosis (1) Pneumonia Qualifiers: Pneumonia type: due to other aerobic Gram-negative bacteria Laterality: unspecified laterality Lung location: unspecified part of lung Qualified Code(s): J15.6 - Pneumonia due to other Gram-negative bacteria Is this a current diagnosis for this admission?: Yes Plan: Growing Pseudomonas and E. coli. Patient was on cefepime and Levaquin. Patient now down to just Levaquin as both bacteria are susceptible to this antibiotic. Patient without leukocytosis or fever however patient has significant respiratory symptoms including respiratory failure requiring the use of the BiPAP machine. (2) Respiratory failure Qualifiers: Chronicity: acute on chronic Respiratory failure complication: hypoxia and hypercapnia Qualified Code(s): J96.21 - Acute and chronic respiratory failure with hypoxia; J96.22 - Acute and chronic respiratory failure with hypercapnia; J96.22 - Acute and chronic respiratory failure with hypercapnia; J96.22 - Acute and chronic respiratory failure with hypercapnia Is this a current diagnosis for this admission?: Yes Plan: Patient symptoms improved with BiPAP. Patient however states he does not want to use BiPAP and he does not have to. His respiratory failure is most likely due to E. coli Pseudomonas pneumonia. Patient is improving gradually clinically. (3) COPD exacerbation Is this a current diagnosis for this admission?: Yes Plan: COPD exacerbation is due to E. coli Pseudomonas pneumonia. Currently on Levaquin. Cefepime discontinued as patient was developing thrombocytopenia possibly due to the antibiotic. Patient is also on Solu-Medrol which was decreased to 60 mg 3 times daily. Patient also on budesonide and Xopenex. (4) Elevated liver function tests Is this a current diagnosis for this admission?: Yes Plan: Etiology however patient is on high-dose statin. Will monitor LFTs. (5) Elevated troponin Is this a current diagnosis for this admission?: Yes Plan: Most likely due to hypoxemia and COPD exacerbation. Patient does not have any chest pain therefore this can be considered a type II [place]. Patient on aspirin and statin. She most likely not on a beta-tc due to his pulmonary condition. - Time Time Spent with patient: Less than 15 minutes Anticipated discharge: Home, Home with Homehealth Within: within 72 hours - Inpatient Certification Medical Necessity: Significant Comorbidiites Make Outpatient Treatment Too Risky , Need Close Monitoring Due to Risk of Patient Decompensation, Need For IV Fluids, Need for Nebulizer Therapy and Monitoring of Response
[2017-08-31] MEDS: MONTELUKAST SODIUM 10 MG TABLET PO SCH (17:39)
[2017-08-31] MEDS: ATORVASTATIN CALCIUM 80 MG TABLET PO SCH (17:39)
[2017-08-31] MEDS: LEVOFLOXACIN 750 MG TABLET PO SCH (21:09)
[2017-09-01] MEDS: METHYLPREDNISOLONE INJ 125 MG/2 ML SDV IV SCH ×3 (05:29→21:02)
[2017-09-01 05:49] LABS: ABSOLUTE LYMPHOCYTES (AUTO) 0.6 10^3/uL (0.5-4.7); ABSOLUTE MONOCYTES (AUTO) 0.8 10^3/uL (0.1-1.4); ABSOLUTE NEUT (AUTO) 4.2 10^3/uL (1.7-8.2); BASOPHILS % (AUTO) 0.1 % (0-2); HEMATOCRIT 40.8 % (37.9-51.0); HEMOGLOBIN 13.3 g/dL (13.5-17.0); LYMPHOCYTES % (AUTO) 11.3 % (13-45); MEAN CORPUSCULAR HEMOGLOBIN 29.7 pg (27.0-33.4); MEAN CORPUSCULAR HGB CONC 32.5 g/dL (32.0-36.0); MEAN CORPUSCULAR VOLUME 91 fl (80-97); MONOCYTES % (AUTO) 13.5 % (3-13); RED BLOOD COUNT 4.47 10^6/uL (4.35-5.55); RED CELL DISTRIBUTION WIDTH 13.8 % (11.5-14.0); SEGMENTED NEUTROPHILS % (AUTO) 75.1 % (42-78); TOTAL CELLS COUNTED % (AUTO) 100 %; WHITE BLOOD COUNT 5.6 10^3/uL (4.0-10.5)
[2017-09-01 06:21] LABS: PLATELET COUNT 83 10^3/uL (150-450)
[2017-09-01] MEDS: IPRATROPIUM/ALBUTEROL 0.5-2.5 MG/3 ML AMPUL NEB SCH ×4 (09:15→20:11)
[2017-09-01] MEDS: BUDESONIDE NEB 0.5 MG/2 ML AMPUL NEB SCH ×2 (09:16→20:11)
[2017-09-01] MEDS: FAMOTIDINE 20 MG TABLET PO SCH ×2 (09:45→21:02)
[2017-09-01] MEDS: ASPIRIN 81 MG TABLET, CHEWABLE PO SCH (09:45)
[2017-09-01] MEDS: ATORVASTATIN CALCIUM 80 MG TABLET PO SCH (17:26)
[2017-09-01] MEDS: MONTELUKAST SODIUM 10 MG TABLET PO SCH (17:26)
[2017-09-01] MEDS: LEVOFLOXACIN 750 MG TABLET PO SCH (21:02)
[2017-09-02] MEDS: METHYLPREDNISOLONE INJ 125 MG/2 ML SDV IV SCH (05:29)
[2017-09-02] MEDS: BUDESONIDE NEB 0.5 MG/2 ML AMPUL NEB SCH ×2 (08:06→19:47)
[2017-09-02] MEDS: IPRATROPIUM/ALBUTEROL 0.5-2.5 MG/3 ML AMPUL NEB SCH ×4 (08:06→19:47)
[2017-09-02 09:23] LABS: ABSOLUTE LYMPHOCYTES (AUTO) 0.5 10^3/uL (0.5-4.7); ABSOLUTE MONOCYTES (AUTO) 1.2 10^3/uL (0.1-1.4); ABSOLUTE NEUT (AUTO) 7.7 10^3/uL (1.7-8.2); BASOPHILS % (AUTO) 0.1 % (0-2); HEMATOCRIT 41.4 % (37.9-51.0); HEMOGLOBIN 13.7 g/dL (13.5-17.0); LYMPHOCYTES % (AUTO) 5.4 % (13-45); MEAN CORPUSCULAR HEMOGLOBIN 29.9 pg (27.0-33.4); MEAN CORPUSCULAR VOLUME 91 fl (80-97); MONOCYTES % (AUTO) 12.6 % (3-13); RED BLOOD COUNT 4.58 10^6/uL (4.35-5.55); SEGMENTED NEUTROPHILS % (AUTO) 81.9 % (42-78); TOTAL CELLS COUNTED % (AUTO) 100 %; WHITE BLOOD COUNT 9.4 10^3/uL (4.0-10.5)
[2017-09-02] MEDS: FAMOTIDINE 20 MG TABLET PO SCH ×2 (09:58→21:26)
[2017-09-02] MEDS: ASPIRIN 81 MG TABLET, CHEWABLE PO SCH (09:59)
[2017-09-02 10:25] LABS: PLATELET COUNT 94 10^3/uL (150-450)
[2017-09-02] MEDS: MONTELUKAST SODIUM 10 MG TABLET PO SCH (17:23)
[2017-09-02] MEDS: ATORVASTATIN CALCIUM 80 MG TABLET PO SCH (17:23)
--- NOTE | 2017-09-02 17:36 | PDOC PROGRESS REPORT ---
Subjective Progress Note for:: 09/01/17 Subjective:: Patient with acute bronchitis and COPD exacerbation. Patient feeling better today. Patient does not want to be placed back on bipap. He states he feels as if he is choking. Patient states he is feeling better. Patient still easily fatigued with minimal activity. Reason For Visit: PNEUMONIA, COPD EXACERBATION Physical Exam Vital Signs: Selected Entries 09/01/17 12:45 Temperature 97.8 F Temperature Oral Source Pulse Rate 92 Respiratory 20 Rate Blood Pressure 133/64 H Blood Pressure 87 Mean BP Location Right Arm BP Position Sitting O2 Sat by Pulse 97 Oximetry Oxygen Flow 2.00 Rate Oxygen Delivery Nasal Cannula Method General appearance: PRESENT: no acute distress, well-developed, well-nourished Head exam: PRESENT: atraumatic, normocephalic Eye exam: PRESENT: conjunctiva pink, EOMI, PERRLA. ABSENT: scleral icterus Ear exam: PRESENT: normal external ear exam Mouth exam: PRESENT: moist, tongue midline Neck exam: ABSENT: carotid bruit, JVD, lymphadenopathy, thyromegaly Respiratory exam: PRESENT: clear to auscultation patrice, decreased breath sounds. ABSENT: rales, rhonchi, wheezes Cardiovascular exam: PRESENT: RRR. ABSENT: diastolic murmur, rubs, systolic murmur Pulses: PRESENT: normal dorsalis pedis pul Vascular exam: PRESENT: normal capillary refill GI/Abdominal exam: PRESENT: normal bowel sounds, soft. ABSENT: distended, guarding, mass, organolmegaly, rebound, tenderness Rectal exam: PRESENT: deferred Extremities exam: PRESENT: full ROM. ABSENT: calf tenderness, clubbing, pedal edema Neurological exam: PRESENT: alert, awake, oriented to person, oriented to place , oriented to time, oriented to situation, CN II-XII grossly intact. ABSENT: motor sensory deficit Psychiatric exam: PRESENT: appropriate affect, normal mood. ABSENT: homicidal ideation, suicidal ideation Skin exam: PRESENT: dry, intact, warm. ABSENT: cyanosis, rash Results Laboratory Results: 09/02/17 08:35 08/30/17 04:20 09/02/17 08:35 WBC 9.4 RBC 4.58 Hgb 13.7 Hct 41.4 MCV 91 MCH 29.9 MCHC 33.0 RDW 14.0 Plt Count 94 L Seg Neutrophils % 81.9 H Lymphocytes % 5.4 L Monocytes % 12.6 Eosinophils % 0.0 Basophils % 0.1 Absolute Neutrophils 7.7 Absolute Lymphocytes 0.5 Absolute Monocytes 1.2 Absolute Eosinophils 0.0 Absolute Basophils 0.0 08/27/17 19:44 Blood Blood Culture - Final NO GROWTH IN 5 DAYS 08/27/17 19:44 Blood Blood Culture - Final NO GROWTH IN 5 DAYS 08/27/17 08/27/17 08/28/17 19:44 19:44 01:40 Creatine Kinase 126 183 H CK-MB (CK-2) 2.89 Troponin I 0.083 08/28/17 08/28/17 08/28/17 01:40 08:28 08:28 Creatine Kinase 254 H CK-MB (CK-2) 4.07 5.31 H Troponin I 0.063 0.110 Impressions: Chest X-Ray 08/27/17 13:32 IMPRESSION: COPD. NO ACUTE RADIOGRAPHIC FINDING IN THE CHEST. Assessment & Plan - Diagnosis (1) Sepsis Qualifiers: Sepsis type: Pseudomonas Qualified Code(s): A41.52 - Sepsis due to Pseudomonas Is this a current diagnosis for this admission?: Yes Plan: Resolved. Patient had hypotension, tachycardia, thrombocytopenia and change in mentation along with Pseudomonas E. coli pneumonia. Continue levaquin to complete a total of 10 days. (2) Pneumonia Qualifiers: Pneumonia type: due to other aerobic Gram-negative bacteria Laterality: unspecified laterality Lung location: unspecified part of lung Qualified Code(s): J15.6 - Pneumonia due to other Gram-negative bacteria Is this a current diagnosis for this admission?: Yes Plan: Growing Pseudomonas and E. coli. Continue treatment with levaquin to complete 10 days total. (3) Respiratory failure Qualifiers: Chronicity: acute on chronic Respiratory failure complication: hypoxia and hypercapnia Qualified Code(s): J96.21 - Acute and chronic respiratory failure with hypoxia; J96.22 - Acute and chronic respiratory failure with hypercapnia; J96.22 - Acute and chronic respiratory failure with hypercapnia; J96.22 - Acute and chronic respiratory failure with hypercapnia Is this a current diagnosis for this admission?: Yes Plan: Patient symptoms improved with BiPAP. Patient however states he does not want to use BiPAP and he does not have to. His respiratory failure is most likely due to E. coli Pseudomonas pneumonia. Patient is improving gradually clinically. Patient still requiring continuous oxygen although he only uses 2 liters at night. (4) COPD exacerbation Is this a current diagnosis for this admission?: Yes Plan: COPD exacerbation is due to E. coli Pseudomonas pneumonia. Currently on Levaquin. Cefepime discontinued as patient was developing thrombocytopenia possibly due to the antibiotic. Patient without any wheezing or signs of distress. Will continue to wean oxygen. Patient also on budesonide and Xopenex. (5) Elevated liver function tests Is this a current diagnosis for this admission?: Yes Plan: Etiology however patient is on high-dose statin. Monitor LFTs. (6) Elevated troponin Is this a current diagnosis for this admission?: Yes Plan: Most likely due to hypoxemia and COPD exacerbation. Patient does not have any chest pain therefore this can be considered a type II [place]. Patient on aspirin and statin. He most likely not on a beta-tc due to his pulmonary condition. (7) Thrombocytopenia Is this a current diagnosis for this admission?: Yes Plan: Thrombocytopenia possibly due to acute infection versus antibiotics. Patient cefepime was discontinued and patient placed on SCDs for DVT prophylaxis. Patient high-dose aspirin was decreased to 81 mg daily. Patient platelet count is trending back up. - Time Time Spent with patient: Less than 15 minutes Anticipated discharge: Home with Homehealth Within: within 48 hours - Inpatient Certification Medical Necessity: Need for Nebulizer Therapy and Monitoring of Response
--- NOTE | 2017-09-02 17:45 | PDOC PROGRESS REPORT ---
Subjective Progress Note for:: 09/02/17 Subjective:: Patient with acute bronchitis and COPD exacerbation. Patient feeling better today. Patient does not want to be placed back on bipap. He states he feels as if he is choking. Patient worked with PT and feels pretty good. He did use a walker and required 3L of oxygen. It was nted that patient was desating to 86 percent on room air at rest. Reason For Visit: PNEUMONIA, COPD EXACERBATION Physical Exam Vital Signs: Temp Pulse Resp BP Pulse Ox 97.6 F 85 14 136/60 H 87 L 09/02/17 10:48 09/02/17 16:18 09/02/17 16:18 09/02/17 10:48 09/02/17 10:48 Intake & Output 09/01/17 09/02/17 09/03/17 06:59 06:59 06:59 Intake Total 2090 1145 Output Total 575 500 Balance 1515 645 Weight 70.7 kg 71.1 kg General appearance: PRESENT: no acute distress, well-developed, well-nourished Head exam: PRESENT: atraumatic, normocephalic Eye exam: PRESENT: conjunctiva pink, EOMI, PERRLA. ABSENT: scleral icterus Ear exam: PRESENT: normal external ear exam Mouth exam: PRESENT: moist, tongue midline Neck exam: ABSENT: carotid bruit, JVD, lymphadenopathy, thyromegaly Respiratory exam: PRESENT: clear to auscultation patrice, decreased breath sounds. ABSENT: rales, rhonchi, wheezes Cardiovascular exam: PRESENT: RRR. ABSENT: diastolic murmur, rubs, systolic murmur Pulses: PRESENT: normal dorsalis pedis pul Vascular exam: PRESENT: normal capillary refill GI/Abdominal exam: PRESENT: normal bowel sounds, soft. ABSENT: distended, guarding, mass, organolmegaly, rebound, tenderness Rectal exam: PRESENT: deferred Extremities exam: PRESENT: full ROM. ABSENT: calf tenderness, clubbing, pedal edema Neurological exam: PRESENT: alert, awake, oriented to person, oriented to place , oriented to time, oriented to situation, CN II-XII grossly intact. ABSENT: motor sensory deficit Psychiatric exam: PRESENT: appropriate affect, normal mood. ABSENT: homicidal ideation, suicidal ideation Skin exam: PRESENT: dry, intact, warm, other - ecchymosis on the arm. ABSENT: cyanosis, rash Results Laboratory Results: 09/02/17 08:35 08/30/17 04:20 09/02/17 08:35 WBC 9.4 RBC 4.58 Hgb 13.7 Hct 41.4 MCV 91 MCH 29.9 MCHC 33.0 RDW 14.0 Plt Count 94 L Seg Neutrophils % 81.9 H Lymphocytes % 5.4 L Monocytes % 12.6 Eosinophils % 0.0 Basophils % 0.1 Absolute Neutrophils 7.7 Absolute Lymphocytes 0.5 Absolute Monocytes 1.2 Absolute Eosinophils 0.0 Absolute Basophils 0.0 08/27/17 19:44 Blood Blood Culture - Final NO GROWTH IN 5 DAYS 08/27/17 19:44 Blood Blood Culture - Final NO GROWTH IN 5 DAYS 08/27/17 08/27/17 08/28/17 19:44 19:44 01:40 Creatine Kinase 126 183 H CK-MB (CK-2) 2.89 Troponin I 0.083 08/28/17 08/28/17 08/28/17 01:40 08:28 08:28 Creatine Kinase 254 H CK-MB (CK-2) 4.07 5.31 H Troponin I 0.063 0.110 Impressions: Chest X-Ray 08/27/17 13:32 IMPRESSION: COPD. NO ACUTE RADIOGRAPHIC FINDING IN THE CHEST. Assessment & Plan - Diagnosis (1) Sepsis Qualifiers: Sepsis type: Pseudomonas Qualified Code(s): A41.52 - Sepsis due to Pseudomonas Is this a current diagnosis for this admission?: Yes Plan: Resolved. Patient had hypotension, tachycardia, thrombocytopenia and change in mentation along with Pseudomonas E. coli pneumonia. Continue levaquin to complete a total of 10 days. Switched to oral levaquin. (2) Pneumonia Qualifiers: Pneumonia type: due to other aerobic Gram-negative bacteria Laterality: unspecified laterality Lung location: unspecified part of lung Qualified Code(s): J15.6 - Pneumonia due to other Gram-negative bacteria Is this a current diagnosis for this admission?: Yes Plan: Growing Pseudomonas and E. coli. Continue treatment with levaquin to complete 10 days total. (3) Respiratory failure Qualifiers: Chronicity: acute on chronic Respiratory failure complication: hypoxia and hypercapnia Qualified Code(s): J96.21 - Acute and chronic respiratory failure with hypoxia; J96.22 - Acute and chronic respiratory failure with hypercapnia; J96.22 - Acute and chronic respiratory failure with hypercapnia; J96.22 - Acute and chronic respiratory failure with hypercapnia Is this a current diagnosis for this admission?: Yes Plan: Patient symptoms improved with BiPAP. Patient however states he does not want to use BiPAP and he does not have to. His respiratory failure is most likely due to E. coli Pseudomonas pneumonia. Patient is improving gradually clinically. Patient still requiring continuous oxygen although he only uses 2 liters at night. (4) COPD exacerbation Is this a current diagnosis for this admission?: Yes Plan: COPD exacerbation is due to E. coli Pseudomonas pneumonia. Currently on Levaquin. Cefepime discontinued as patient was developing thrombocytopenia possibly due to the antibiotic. Patient without any wheezing or signs of distress. Unable to wean oxygen. Patient may require continuous oxygen or more time. Patient is desating at rest however this may be his baseline. Patient also on budesonide and Xopenex. (5) Elevated liver function tests Is this a current diagnosis for this admission?: Yes Plan: Etiology however patient is on high-dose statin. Monitor LFTs. (6) Elevated troponin Is this a current diagnosis for this admission?: Yes Plan: Most likely due to hypoxemia and COPD exacerbation. Patient does not have any chest pain therefore this can be considered a type II CT. Patient on aspirin and statin. He most likely not on a beta-tc due to his pulmonary condition. (7) Thrombocytopenia Is this a current diagnosis for this admission?: Yes Plan: Thrombocytopenia possibly due to acute infection versus antibiotics. Patient cefepime was discontinued and patient placed on SCDs for DVT prophylaxis. Patient high-dose aspirin was decreased to 81 mg daily. Patient platelet count is trending back up. Continue to monitor. - Time Time Spent with patient: Less than 15 minutes Anticipated discharge: Home with Homehealth Within: within 24 hours - Inpatient Certification Medical Necessity: Need for Nebulizer Therapy and Monitoring of Response
[2017-09-02 18:57] LABS: ALANINE AMINOTRANSFERASE 53 U/L (21-72); ALBUMIN 2.8 g/dL (3.5-5.0); ALKALINE PHOSPHATASE 52 U/L (38-126); ASPARTATE AMINO TRANSFERASE 35 U/L (17-59); BILIRUBIN,DIRECT 0.2 mg/dL (0.0-0.4); BILIRUBIN,TOTAL 0.6 mg/dL (0.2-1.3)
[2017-09-02] MEDS: LEVOFLOXACIN 750 MG TABLET PO SCH (21:26)
[2017-09-03] MEDS: BUDESONIDE NEB 0.5 MG/2 ML AMPUL NEB SCH ×2 (08:50→19:55)
[2017-09-03] MEDS: IPRATROPIUM/ALBUTEROL 0.5-2.5 MG/3 ML AMPUL NEB SCH ×4 (08:50→19:55)
[2017-09-03] MEDS: ASPIRIN 81 MG TABLET, CHEWABLE PO SCH (09:17)
[2017-09-03] MEDS: FAMOTIDINE 20 MG TABLET PO SCH ×2 (09:17→20:28)
[2017-09-03] MEDS ORDERED: PREDNISONE 20 MG TABLET PO SCH (10:00)
[2017-09-03 10:46] LABS: ARTERIAL BLOOD BASE EXCESS 8.4 mmol/L; ARTERIAL BLOOD FIO2 2L; ARTERIAL BLOOD H2CO3 1.51 mmol/L (1.05-1.35); ARTERIAL BLOOD O2 SATURATION 91.9 % (94-98); ARTERIAL BLOOD PCO2 50.2 mmHg (35-45); ARTERIAL BLOOD PH 7.45 (7.35-7.45); ARTERIAL BLOOD PO2 60.6 mmHg (80-100); ARTERIAL BLOOD TOTAL CO2 35.6 mmol/L (23-27)
[2017-09-03] MEDS: ATORVASTATIN CALCIUM 80 MG TABLET PO SCH (17:23)
[2017-09-03] MEDS: MONTELUKAST SODIUM 10 MG TABLET PO SCH (17:23)
[2017-09-03] MEDS: LEVOFLOXACIN 750 MG TABLET PO SCH (20:27)
--- NOTE | 2017-09-03 20:52 | PDOC PROGRESS REPORT ---
Subjective Progress Note for:: 09/03/17 Subjective:: Patient with acute bronchitis and COPD exacerbation. Patient feeling better today. Patient does not want to be placed back on bipap. He states he feels as if he is choking. Patient worked with PT and feels pretty good. Patient states that he still feel pretty weak. Patient could not get up off the beside commode on his own. He legs are heavy to lift. This is not normal for him. Reason For Visit: PNEUMONIA, COPD EXACERBATION Physical Exam Vital Signs: Temp Pulse Resp BP Pulse Ox 97.5 F 94 18 112/52 L 95 09/03/17 14:50 09/03/17 14:50 09/03/17 14:50 09/03/17 14:50 09/03/17 14:50 Intake & Output 09/02/17 09/03/17 09/04/17 06:59 06:59 06:59 Intake Total 1145 1456 0 Output Total 500 560 Balance 645 896 0 Weight 71.1 kg 71.4 kg General appearance: PRESENT: no acute distress, well-developed, well-nourished Head exam: PRESENT: atraumatic, normocephalic Eye exam: PRESENT: conjunctiva pink, EOMI, PERRLA. ABSENT: scleral icterus Ear exam: PRESENT: normal external ear exam Mouth exam: PRESENT: moist, tongue midline Neck exam: ABSENT: carotid bruit, JVD, lymphadenopathy, thyromegaly Respiratory exam: PRESENT: clear to auscultation patrice, decreased breath sounds. ABSENT: rales, rhonchi, wheezes Cardiovascular exam: PRESENT: RRR. ABSENT: diastolic murmur, rubs, systolic murmur Pulses: PRESENT: normal dorsalis pedis pul Vascular exam: PRESENT: normal capillary refill GI/Abdominal exam: PRESENT: normal bowel sounds, soft. ABSENT: distended, guarding, mass, organolmegaly, rebound, tenderness Rectal exam: PRESENT: deferred Extremities exam: PRESENT: full ROM. ABSENT: calf tenderness, clubbing, pedal edema Neurological exam: PRESENT: alert, awake, oriented to person, oriented to place , oriented to time, oriented to situation, CN II-XII grossly intact. ABSENT: motor sensory deficit Psychiatric exam: PRESENT: appropriate affect, normal mood. ABSENT: homicidal ideation, suicidal ideation Skin exam: PRESENT: dry, intact, warm. ABSENT: cyanosis, rash Results Laboratory Results: 09/02/17 08:35 08/30/17 04:20 09/03/17 10:15 Carbonic Acid 1.51 H HCO3/H2CO3 Ratio 22:1 ABG pH 7.45 ABG pCO2 50.2 H ABG pO2 60.6 L ABG HCO3 34.0 H ABG O2 Saturation 91.9 L ABG Base Excess 8.4 FiO2 2L 08/27/17 08/27/17 08/28/17 19:44 19:44 01:40 Creatine Kinase 126 183 H CK-MB (CK-2) 2.89 Troponin I 0.083 08/28/17 08/28/17 08/28/17 01:40 08:28 08:28 Creatine Kinase 254 H CK-MB (CK-2) 4.07 5.31 H Troponin I 0.063 0.110 Impressions: Chest X-Ray 08/27/17 13:32 IMPRESSION: COPD. NO ACUTE RADIOGRAPHIC FINDING IN THE CHEST. Assessment & Plan - Diagnosis (1) Sepsis Qualifiers: Sepsis type: Pseudomonas Qualified Code(s): A41.52 - Sepsis due to Pseudomonas Is this a current diagnosis for this admission?: Yes Plan: Resolved. Patient had hypotension, tachycardia, thrombocytopenia and change in mentation along with Pseudomonas E. coli pneumonia. Continue levaquin to complete a total of 10 days. Patient requires 3 more days. (2) Pneumonia Qualifiers: Pneumonia type: due to other aerobic Gram-negative bacteria Laterality: unspecified laterality Lung location: unspecified part of lung Qualified Code(s): J15.6 - Pneumonia due to other Gram-negative bacteria Is this a current diagnosis for this admission?: Yes Plan: Growing Pseudomonas and E. coli. Continue treatment with levaquin to complete 10 days total. Patient requires 3 more days. (3) Respiratory failure Qualifiers: Chronicity: acute on chronic Respiratory failure complication: hypoxia and hypercapnia Qualified Code(s): J96.21 - Acute and chronic respiratory failure with hypoxia; J96.22 - Acute and chronic respiratory failure with hypercapnia; J96.22 - Acute and chronic respiratory failure with hypercapnia; J96.22 - Acute and chronic respiratory failure with hypercapnia Is this a current diagnosis for this admission?: Yes Plan: Patient symptoms improved with BiPAP. Patient however states he does not want to use BiPAP and he does not have to. His respiratory failure is most likely due to E. coli Pseudomonas pneumonia. Patient is improving gradually clinically. Patient still requiring continuous oxygen although he only uses 2 liters at night. Patient with hypercapnic hypoxic respiratory failure. (4) COPD exacerbation Is this a current diagnosis for this admission?: Yes Plan: COPD exacerbation is due to E. coli Pseudomonas pneumonia. Currently on Levaquin. Cefepime discontinued as patient was developing thrombocytopenia possibly due to the antibiotic. Still unable to wean patient oxygen. Patient still requiring 2L continuously and up to 3 L with activity. (5) Elevated liver function tests Is this a current diagnosis for this admission?: Yes Plan: Resolved. (6) Elevated troponin Is this a current diagnosis for this admission?: Yes Plan: Most likely due to hypoxemia and COPD exacerbation. Patient does not have any chest pain therefore this can be considered a type II [place]. Patient on aspirin and statin. He most likely not on a beta-tc due to his pulmonary condition. (7) Thrombocytopenia Is this a current diagnosis for this admission?: Yes Plan: Thrombocytopenia possibly due to acute infection versus antibiotics. Patient cefepime was discontinued and patient placed on SCDs for DVT prophylaxis. Platelets are gradually trending up. (8) Debility Is this a current diagnosis for this admission?: Yes Plan: Patient very deconditioned. There is concern that patient may not be able to manage at home. Patient's is also deconditioned so she wont be able to assist him if anything were to happen. Consulting case management for possible rehab placement. PT/OT consulted. - Time Time Spent with patient: Less than 15 minutes Anticipated discharge: SNF - Inpatient Certification Medical Necessity: Need for Nebulizer Therapy and Monitoring of Response
[2017-09-04] MEDS: BUDESONIDE NEB 0.5 MG/2 ML AMPUL NEB SCH ×2 (08:51→20:44)
[2017-09-04] MEDS: IPRATROPIUM/ALBUTEROL 0.5-2.5 MG/3 ML AMPUL NEB SCH ×2 (08:52→16:48)
[2017-09-04] MEDS: PREDNISONE 20 MG TABLET PO SCH (10:28)
[2017-09-04] MEDS: FAMOTIDINE 20 MG TABLET PO SCH ×2 (10:28→21:29)
[2017-09-04] MEDS: ASPIRIN 81 MG TABLET, CHEWABLE PO SCH (10:30)
[2017-09-04] MEDS ORDERED: POTASSIUM CHLORIDE 10 MEQ TABLET.SA PO ONE (15:45)
[2017-09-04] MEDS ORDERED: SPIRONOLACTONE 25 MG TABLET PO ONE (15:45)
[2017-09-04] MEDS ORDERED: METOLAZONE 2.5 MG TABLET PO ONE (15:45)
[2017-09-04] MEDS ORDERED: FUROSEMIDE 40 MG TABLET PO ONE (15:45)
[2017-09-04] MEDS: MONTELUKAST SODIUM 10 MG TABLET PO SCH (17:56)
[2017-09-04] MEDS: FUROSEMIDE 40 MG TABLET PO SCH (17:56)
[2017-09-04] MEDS: ATORVASTATIN CALCIUM 80 MG TABLET PO SCH (17:57)
[2017-09-05 08:32] LABS: BLOOD UREA NITROGEN 16 mg/dL (7-20); CALCIUM 9.5 mg/dL (8.4-10.2); CHLORIDE 90 mmol/L (98-107); GLUCOSE 77 mg/dL (75-110); MAGNESIUM 2.1 mg/dL (1.6-2.3); POTASSIUM 4.2 mmol/L (3.6-5.0); SODIUM 136.8 mmol/L (137-145)
[2017-09-05] MEDS: BUDESONIDE NEB 0.5 MG/2 ML AMPUL NEB SCH ×2 (08:35→20:17)
[2017-09-05] MEDS: IPRATROPIUM/ALBUTEROL 0.5-2.5 MG/3 ML AMPUL NEB SCH ×3 (08:35→20:17)
[2017-09-05 08:39] LABS: ANION GAP 8 (5-19)
[2017-09-05 08:43] LABS: CARBON DIOXIDE 39 mmol/L (22-30)
[2017-09-05] MEDS ORDERED: SPIRONOLACTONE 25 MG TABLET PO SCH (10:00)
[2017-09-05] MEDS ORDERED: FUROSEMIDE 40 MG TABLET PO SCH (10:00)
[2017-09-05] MEDS ORDERED: METOLAZONE 2.5 MG TABLET PO SCH (10:00)
[2017-09-05] MEDS ORDERED: POTASSIUM CHLORIDE 10 MEQ TABLET.SA PO SCH (10:00)
[2017-09-05] MEDS: FUROSEMIDE 40 MG TABLET PO SCH (10:13)
[2017-09-05] MEDS: ASPIRIN 81 MG TABLET, CHEWABLE PO SCH (10:14)
[2017-09-05] MEDS: FAMOTIDINE 20 MG TABLET PO SCH ×2 (10:14→21:41)
[2017-09-05] MEDS: PREDNISONE 20 MG TABLET PO SCH (10:19)
--- NOTE | 2017-09-05 12:12 | RADIOLOGY REPORT (SQ) ---
EXAM DESCRIPTION: CHEST PA/LAT COMPLETED DATE/TIME: 09/05/2017 11:18 am REASON FOR STUDY: hypoxia COMPARISON: 10/13/2007, 7299, 08/29/2009, 08/27/2017 chest films EXAM PARAMETERS: NUMBER OF VIEWS: two views TECHNIQUE: Digital Frontal and Lateral radiographic views of the chest acquired. RADIATION DOSE: NA LIMITATIONS: none FINDINGS: LUNGS AND PLEURA: Lungs are hyperinflated and hyperlucent from obstructive disease. Trace right pleural effusion. There are few Kishore lines at both bases worrisome for mild interstiti al edema. No dense consolidation worrisome for pneumonia no pneumothorax. MEDIASTINUM AND HILAR STRUCTURES: No masses or contour abnormalities. HEART AND VASCULAR STRUCTURES: Heart normal size. No evidence for failure. BONES: Osteoporotic without thoracic compression deformity HARDWARE: None in the chest. OTHER: No other significant finding. IMPRESSION: Mild fluid overload or congestive failure superimposed on obstructive lung disease TECHNICAL DOCUMENTATION: JOB ID: [id number]- All Rights Reserved
[2017-09-05] MEDS ORDERED: IPRATROPIUM/ALBUTEROL 0.5-2.5 MG/3 ML AMPUL NEB SCH (14:00)
[2017-09-05] MEDS: ATORVASTATIN CALCIUM 80 MG TABLET PO SCH (17:44)
[2017-09-05] MEDS ORDERED: FUROSEMIDE INJ/PF 20 MG/2 ML SDV IV SCH (18:00)
[2017-09-05 19:21] LABS: ARTERIAL BLOOD BASE EXCESS 10.4 mmol/L; ARTERIAL BLOOD H2CO3 1.37 mmol/L (1.05-1.35); ARTERIAL BLOOD O2 SATURATION 88.7 % (94-98); ARTERIAL BLOOD PCO2 45.4 mmHg (35-45); ARTERIAL BLOOD PH 7.51 (7.35-7.45); ARTERIAL BLOOD PO2 50.6 mmHg (80-100); ARTERIAL BLOOD TOTAL CO2 36.4 mmol/L (23-27)
[2017-09-05 19:22] LABS: ARTERIAL BLOOD FIO2 5LPM
--- NOTE | 2017-09-05 23:21 | RADIOLOGY REPORT (SQ) ---
EXAM DESCRIPTION: CTA CHEST COMPLETED DATE/TIME: 09/05/2017 10:45 pm REASON FOR STUDY: hypoxia A41.89 OTHER SPECIFIED SEPSIS COMPARISON: Chest x-ray 09/05/2017. TECHNIQUE: CT scan of the chest performed using helical scanning technique with dynamic intravenous contrast injection. Images reviewed with lung, soft tissue and bone windows. Reconstructed coronal and sagittal MPR images reviewed. Additional 3 dimensional post-processing performed to develop Maximal Intensity Projection images (VA P). All images stored on PACS. All CT scanners at this facility use dose modulation, iterative reconstruction, and/or weight based d osing when appropriate to reduce radiation dose to as low as reasonably achievable (ALARA). [facility]: Dose Right [facility]: CareDose [facility]: Dose Right [facility]: Teradose 4D [facility]: [employer] CONTRAST TYPE AND DOSE: contrast/concentration: Isovue 370.00 mg/ml; Total Contrast Delivered: 66.0 ml; Total Saline Delivered: 60.0 ml Contrast bolus optimized for the pulmonary arteries. Not diagnostic for the aorta. RENAL FUNCTION: Creatinine 0.61 RADIATION DOSE: CT Rad equipment meets quality standard of care and radiation dose reduction techniq ues were employed. CTDIvol: 6.6 - 14.8 mGy. DLP: 558 mGy-cm. . LIMITATIONS: None. FINDINGS: LUNGS AND PLEURA: There are bilateral emphysematous changes. Mild atelectasis at the bila teral lung bases. No pleural effusion or pneumothorax AORTA AND GREAT VESSELS: No thoracic aortic aneurysm. Contrast bolus not optimized for the aorta. HEART: No pericardial effusion. Coronary arteries calcifications are noted. PULMONARY ARTERIES: No emboli visualized in the main pulmonary arteries or the segmental branches. HILAR AND MEDIASTINAL STRUCTURES: No identified masses or abnormal nodes. HARDWARE: None in the chest. UPPER ABDOMEN: No significant findings. Limited exam. THYROID AND OTHER SOFT TISSUES: The visualized thyroid gland is unremarkable. BONES: Degenerative changes in the spine. 3D MIPS: Confirm above findings. IMPRESSION: No pulmonary emboli. Emphysema. Mild bibasilar atelectasis. COMMENT: Quality ID # [id number]: Final reports with documentation of one or more dose reduction techniques (e.g., Automated exposure control, adjustment of the mA and/or kV according to patient size, use of iterative reconstruction technique) TECHNICAL DOCUMENTATION: JOB ID: [id number] [id number] [employer]- All Rights Reserved
[2017-09-06] MEDS ORDERED: MAGNESIUM SULFATE/D5W 1 GM/100 ML RTUPB IV ONE (08:03)
[2017-09-06] MEDS: BUDESONIDE NEB 0.5 MG/2 ML AMPUL NEB SCH (08:23)
[2017-09-06] MEDS: IPRATROPIUM/ALBUTEROL 0.5-2.5 MG/3 ML AMPUL NEB SCH ×3 (08:24→16:18)
[2017-09-06] MEDS ORDERED: ALBUTEROL SULFATE 0.083% NEB 2.5 MG/3 ML AMPUL NEB ONE (09:00)
[2017-09-06] MEDS ORDERED: ACETYLCYSTEINE 20% SOLN 800 MG/4 ML VIAL.NEB NEB ONE (09:00)
[2017-09-06] MEDS ORDERED: PREDNISONE 20 MG TABLET PO SCH (10:00)
[2017-09-06] MEDS: ASPIRIN 81 MG TABLET, CHEWABLE PO SCH (10:40)
[2017-09-06] MEDS: FAMOTIDINE 20 MG TABLET PO SCH (10:41)
--- NOTE | 2017-09-06 10:54 | PDOC PROGRESS REPORT ---
Subjective Progress Note for:: 09/04/17 Subjective:: Patient with acute bronchitis and COPD exacerbation. Patient feeling better today. Patient does not want to be placed back on bipap. Patient complaining on swelling in private area. Patient is otherwise doing well. Reason For Visit: PNEUMONIA, COPD EXACERBATION Physical Exam Vital Signs: Temp Pulse Resp BP Pulse Ox 98.5 F 85 16 129/60 H 93 09/04/17 20:00 09/04/17 20:45 09/04/17 20:45 09/04/17 20:00 09/04/17 20:00 Intake & Output 09/03/17 09/04/17 09/05/17 06:59 06:59 06:59 Intake Total 1456 822 3 Output Total 560 425 Balance 896 397 3 Weight 71.4 kg 69 kg General appearance: PRESENT: no acute distress, thin, well-developed, well- nourished Head exam: PRESENT: normocephalic Eye exam: PRESENT: EOMI. ABSENT: scleral icterus Ear exam: PRESENT: normal external ear exam Mouth exam: PRESENT: moist Neck exam: ABSENT: carotid bruit, JVD, lymphadenopathy, thyromegaly Respiratory exam: PRESENT: clear to auscultation patrice, decreased breath sounds. ABSENT: rales, rhonchi, wheezes Cardiovascular exam: PRESENT: RRR. ABSENT: diastolic murmur, rubs, systolic murmur Pulses: PRESENT: normal dorsalis pedis pul Vascular exam: PRESENT: normal capillary refill GI/Abdominal exam: PRESENT: normal bowel sounds, soft. ABSENT: distended, guarding, mass, organolmegaly, rebound, tenderness Rectal exam: PRESENT: deferred Gentrourinary exam: PRESENT: scrotal swelling Extremities exam: PRESENT: full ROM, pedal edema. ABSENT: calf tenderness, clubbing Neurological exam: PRESENT: alert, awake, oriented to person, oriented to place , oriented to time, oriented to situation, CN II-XII grossly intact. ABSENT: motor sensory deficit Psychiatric exam: PRESENT: appropriate affect, normal mood. ABSENT: homicidal ideation, suicidal ideation Skin exam: PRESENT: dry, intact, warm. ABSENT: cyanosis, rash Results Laboratory Results: 09/02/17 08:35 08/30/17 04:20 08/27/17 08/27/17 08/28/17 19:44 19:44 01:40 Creatine Kinase 126 183 H CK-MB (CK-2) 2.89 Troponin I 0.083 08/28/17 08/28/17 08/28/17 01:40 08:28 08:28 Creatine Kinase 254 H CK-MB (CK-2) 4.07 5.31 H Troponin I 0.063 0.110 Impressions: Chest X-Ray 08/27/17 13:32 IMPRESSION: COPD. NO ACUTE RADIOGRAPHIC FINDING IN THE CHEST. Assessment & Plan - Diagnosis (1) Sepsis Qualifiers: Sepsis type: Pseudomonas Qualified Code(s): A41.52 - Sepsis due to Pseudomonas Is this a current diagnosis for this admission?: Yes Plan: Resolved. Patient had hypotension, tachycardia, thrombocytopenia and change in mentation along with Pseudomonas E. coli pneumonia. Continue levaquin to complete a total of 10 days. Patient requires 2 more days. (2) Pneumonia Qualifiers: Pneumonia type: due to other aerobic Gram-negative bacteria Laterality: unspecified laterality Lung location: unspecified part of lung Qualified Code(s): J15.6 - Pneumonia due to other Gram-negative bacteria Is this a current diagnosis for this admission?: Yes Plan: Growing Pseudomonas and E. coli. Continue treatment with levaquin to complete 10 days total. Patient requires 2 more days. (3) Respiratory failure Qualifiers: Chronicity: acute on chronic Respiratory failure complication: hypoxia and hypercapnia Qualified Code(s): J96.21 - Acute and chronic respiratory failure with hypoxia; J96.22 - Acute and chronic respiratory failure with hypercapnia; J96.22 - Acute and chronic respiratory failure with hypercapnia; J96.22 - Acute and chronic respiratory failure with hypercapnia Is this a current diagnosis for this admission?: Yes Plan: Patient symptoms improved with BiPAP. Patient however states he does not want to use BiPAP and he does not have to. His respiratory failure is most likely due to E. coli Pseudomonas pneumonia. Patient is improving gradually clinically. Patient still requiring continuous oxygen although he only uses 2 liters at night. Patient with hypercapnic hypoxic respiratory failure on presentation-improving. (4) COPD exacerbation Is this a current diagnosis for this admission?: Yes Plan: COPD exacerbation is due to E. coli Pseudomonas pneumonia. Currently on Levaquin. Cefepime discontinued as patient was developing thrombocytopenia possibly due to the antibiotic. Still unable to wean patient oxygen. Patient still requiring 2L continuously and up to 3 L with activity. Patient may need time. (5) Elevated liver function tests Is this a current diagnosis for this admission?: Yes Plan: Resolved. (6) Elevated troponin Is this a current diagnosis for this admission?: Yes Plan: Most likely due to hypoxemia and COPD exacerbation. Patient does not have any chest pain therefore this can be considered a type II [place]. Patient on aspirin and statin. He most likely not on a beta-tc due to his pulmonary condition. (7) Thrombocytopenia Is this a current diagnosis for this admission?: Yes Plan: Thrombocytopenia possibly due to acute infection versus antibiotics. Patient cefepime was discontinued and patient placed on SCDs for DVT prophylaxis. Platelets are gradually trending up. (8) Debility Is this a current diagnosis for this admission?: Yes Plan: Patient very deconditioned. There is concern that patient may not be able to manage at home. Patient's is also deconditioned so she wont be able to assist him if anything were to happen. Patient accepted to [place]. (9) Volume overload Is this a current diagnosis for this admission?: Yes Plan: Will start patient on diuretic and monitor. Will order scrotal support. - Time Time Spent with patient: Less than 15 minutes Anticipated discharge: SNF Within: Other - Inpatient Certification Medical Necessity: Other - Patient volume overloaded and requires diuresis prior to discharge.
--- NOTE | 2017-09-06 11:09 | PDOC PROGRESS REPORT ---
Subjective Progress Note for:: 09/05/17 Subjective:: Patient with acute bronchitis and COPD exacerbation. Patient feeling better today. Patient does not want to be placed back on bipap. Patient complaining on swelling in private area. Patient is otherwise doing well. Patient is requiring more oxygen up to 5L to maintain his saturations. Patient not in distress. Patient will require further work up before discharge to [facility] [facility]. Reason For Visit: PNEUMONIA, COPD EXACERBATION Physical Exam Vital Signs: Temp Pulse Resp BP Pulse Ox 97.7 F 106 H 18 123/61 89 L 09/05/17 20:17 09/05/17 20:17 09/05/17 20:17 09/05/17 20:17 09/05/17 20:17 Intake & Output 09/04/17 09/05/17 09/06/17 06:59 06:59 06:59 Intake Total 822 243 575 Output Total 425 400 700 Balance 397 -157 -125 Weight 69 kg 69 kg General appearance: PRESENT: no acute distress, well-developed, well-nourished Head exam: PRESENT: atraumatic, normocephalic Eye exam: PRESENT: conjunctiva pink, EOMI, PERRLA. ABSENT: scleral icterus Ear exam: PRESENT: normal external ear exam Mouth exam: PRESENT: moist, tongue midline Neck exam: ABSENT: carotid bruit, JVD, lymphadenopathy, thyromegaly Respiratory exam: PRESENT: clear to auscultation patrice, decreased breath sounds. ABSENT: rales, rhonchi, wheezes Cardiovascular exam: PRESENT: RRR. ABSENT: diastolic murmur, rubs, systolic murmur GI/Abdominal exam: PRESENT: normal bowel sounds, soft. ABSENT: distended, guarding, mass, organolmegaly, rebound, tenderness Rectal exam: PRESENT: deferred Extremities exam: PRESENT: full ROM. ABSENT: calf tenderness, clubbing, pedal edema Neurological exam: PRESENT: alert, awake, oriented to person, oriented to place , oriented to time, oriented to situation, CN II-XII grossly intact. ABSENT: motor sensory deficit Psychiatric exam: PRESENT: appropriate affect, normal mood. ABSENT: homicidal ideation, suicidal ideation Skin exam: PRESENT: dry, intact, warm. ABSENT: cyanosis, rash Results Laboratory Results: 09/02/17 08:35 09/05/17 07:42 09/05/17 09/05/17 07:42 18:20 Carbonic Acid 1.37 H HCO3/H2CO3 Ratio 25:1 ABG pH 7.51 H ABG pCO2 45.4 H ABG pO2 50.6 L ABG HCO3 35.0 H ABG O2 Saturation 88.7 L ABG Base Excess 10.4 FiO2 5LPM Sodium 136.8 L Potassium 4.2 Chloride 90 L Carbon Dioxide 39 H Anion Gap 8 BUN 16 Creatinine 0.61 Est GFR ( Amer) > 60 Est GFR (Non-Af Amer) > 60 Glucose 77 Calcium 9.5 Magnesium 2.1 08/27/17 08/27/17 08/28/17 19:44 19:44 01:40 Creatine Kinase 126 183 H CK-MB (CK-2) 2.89 Troponin I 0.083 08/28/17 08/28/17 08/28/17 01:40 08:28 08:28 Creatine Kinase 254 H CK-MB (CK-2) 4.07 5.31 H Troponin I 0.063 0.110 Impressions: Chest X-Ray 09/05/17 00:00 IMPRESSION: Mild fluid overload or congestive failure superimposed on obstructive lung disease Assessment & Plan - Diagnosis (1) Respiratory failure Qualifiers: Chronicity: acute on chronic Respiratory failure complication: hypoxia and hypercapnia Qualified Code(s): J96.21 - Acute and chronic respiratory failure with hypoxia; J96.22 - Acute and chronic respiratory failure with hypercapnia; J96.22 - Acute and chronic respiratory failure with hypercapnia; J96.22 - Acute and chronic respiratory failure with hypercapnia Is this a current diagnosis for this admission?: Yes Plan: Patient symptoms improved with BiPAP. Patient however states he does not want to use BiPAP and he does not have to. His respiratory failure is most likely due to E. coli Pseudomonas pneumonia. Patient is improving gradually clinically. Patient still requiring continuous oxygen although he only uses 2 liters at night. Patient persistently hypoxic. Patient does have some CO2 retention but is asymptomatic. Patient is requiring having increased oxygen needs. Will check ABG and CT of the chest to rule out any PE or worsening pneumonia. (2) Sepsis Qualifiers: Sepsis type: Pseudomonas Qualified Code(s): A41.52 - Sepsis due to Pseudomonas Is this a current diagnosis for this admission?: Yes Plan: Resolved. Patient had hypotension, tachycardia, thrombocytopenia and change in mentation along with Pseudomonas E. coli pneumonia. Continue levaquin to complete a total of 10 days. Patient requires 1 more day. (3) Pneumonia Qualifiers: Pneumonia type: due to other aerobic Gram-negative bacteria Laterality: unspecified laterality Lung location: unspecified part of lung Qualified Code(s): J15.6 - Pneumonia due to other Gram-negative bacteria Is this a current diagnosis for this admission?: Yes Plan: Growing Pseudomonas and E. coli. Continue treatment with levaquin to complete 10 days total. Patient requires 1 more day. (4) COPD exacerbation Is this a current diagnosis for this admission?: Yes Plan: COPD exacerbation is due to E. coli Pseudomonas pneumonia. Currently on Levaquin. Cefepime discontinued as patient was developing thrombocytopenia possibly due to the antibiotic. Patient being weaned off steroids. Continue nebs. Patient no longer wants to use a decongestant. Mucinex discontinued. (5) Elevated liver function tests Is this a current diagnosis for this admission?: Yes Plan: Resolved. (6) Elevated troponin Is this a current diagnosis for this admission?: Yes Plan: Most likely due to hypoxemia and COPD exacerbation. Patient does not have any chest pain therefore this can be considered a type II CT. Patient on aspirin and statin. He most likely not on a beta-tc due to his pulmonary condition. (7) Thrombocytopenia Is this a current diagnosis for this admission?: Yes Plan: Thrombocytopenia possibly due to acute infection versus antibiotics. Patient cefepime was discontinued and patient placed on SCDs for DVT prophylaxis. Platelets are gradually trending up. (8) Debility Is this a current diagnosis for this admission?: Yes Plan: Patient very deconditioned. There is concern that patient may not be able to manage at home. Patient's is also deconditioned so she wont be able to assist him if anything were to happen. Patient accepted to [facility] however is not clinically ready for discharge. Hope to discharge in the morning. (9) Volume overload Is this a current diagnosis for this admission?: Yes Plan: Chest x-ray shows mild volume overload. Continue diuretics as tolerated. - Time Time Spent with patient: 15-24 minutes Anticipated discharge: SNF Within: within 24 hours - Inpatient Certification Medical Necessity: Other - Patient requires further workup for his increase in oxygen needs to maintain his saturations.
--- NOTE | 2017-09-06 11:31 | PDOC TRANSFER SUMMARY ---
General - Admit/Disc Date/PCP Admission Date/Primary Care Provider: 08/27/17 17:58 AZAEL YOUNG Discharge Date: 09/06/17 - Discharge Diagnosis (1) Respiratory failure Is this a current diagnosis for this admission?: Yes (2) Sepsis Is this a current diagnosis for this admission?: Yes (3) Pneumonia Is this a current diagnosis for this admission?: Yes (4) COPD exacerbation Is this a current diagnosis for this admission?: Yes (5) Elevated liver function tests Is this a current diagnosis for this admission?: Yes (6) Elevated troponin Is this a current diagnosis for this admission?: Yes (7) Thrombocytopenia Is this a current diagnosis for this admission?: Yes (8) Debility Is this a current diagnosis for this admission?: Yes (9) Volume overload Is this a current diagnosis for this admission?: Yes - Additional Information Resuscitation Status: Full Code Discharge Diet: Cardiac Prescriptions: Fluticasone/Salmeterol [Advair 250-50 Diskus 28 dose] 1 inh IH Q12H #1 inhaler Ipratropium/Albuterol Sulfate [Duoneb 3 ml Ampul] 3 ml NEB Q4 PRN #120 vial.neb PRN Reason: shortness of breath/cough Methylprednisolone [Medrol Dosepack (4 mg/Tab) 21 Tab/Dosepak] 4 mg PO ASDIR # 21 tab.ds.pk Home Medications: Valsartan/Hydrochlorothiazide [Valsartan-Hctz 160-25 mg Tab] 0.5 tab PO DAILY Fluticasone/Salmeterol [Advair 250-50 Diskus 28 dose] 1 inh IH Q12H #1 inhaler 09/05/17 Ipratropium/Albuterol Sulfate [Duoneb 3 ml Ampul] 3 ml NEB Q4 PRN #120 vial.neb 09/05/17 Methylprednisolone [Medrol Dosepack (4 mg/Tab) 21 Tab/Dosepak] 4 mg PO ASDIR # 21 tab.ds.pk 09/05/17 Aspirin [Aspirin 81 mg Chewable Tablet] 81 mg PO DAILY tab.chew 09/06/17 History of Present Illness Admission Date/PCP: 08/27/17 17:58 AZAEL YOUNG History of Present Illness: LISA AVILA is a 71 year old male who presented to the emergency department after being referred by the urgent care clinic for hypotension and hypoxemia. The patient has known COPD. He believes that he is supposed to be taking Brio, but, he has been unable to afford this medication and therefore he is only using Ventolin. Patient is a long-term smoker. He has cut back from greater than a pack per day to about three quarters of a pack per day. Over the last 3 days he has had increasing cough with increasing shortness of breath. His cough is purulent and he is coughing up thick, yellow phlegm. He has not had any hemoptysis. He does not have a fever and he does not have a sore throat. He has no pain with swallowing. He has no nausea, vomiting or diarrhea but he has been eating very poorly. When his daughter took him to the urgent care clinic she stated that his nose looked blue. The patient also has a significant coronary history and has had 5 stents placed in the past. His chocolate temperer is Dr. Sharma at [facility]. Currently, the patient and his family are unable to provide me with the medication list. The patient's daughter is going to bring the medication list to the hospital as soon as possible. The original history and physical dictated by Dr. Nesbitt. Please refer to it for further details. Hospital Course Hospital Course: Patient presented with sepsis, pneumonia and COPD exacerbation. Patient was started on steroids nebs and antibiotics. There is concern for possible pneumonia therefore he was empirically started on and Levaquin. Patient sputum did grow Pseudomonas and E. coli. Patient blood cultures remain negative. Patient was narrowed down to just Levaquin. Patient was developing thrombocytopenia thought to be secondary to the cefepime. With cefepime was discontinued patient platelets started to trend back up. Patient completed 10 days of Levaquin. Patient has a known history of hypoxic respiratory failure for which she uses 2 L of oxygen overnight. Patient did develop hypercapnic hypoxic respiratory failure with change in mentation and was placed on BiPAP. Patient requested to not be put on that machine again as he felt very claustrophobic having [employer] into his lungs and not being able to breathe out against it. Patient was transitioned to nasal cannula and was tolerating 2 L of oxygen and maintaining his sats in the low to mid 90s. Patient will require increased oxygen with ambulation up to 3 L. However patient did start to require up to 5 L of oxygen maintain sats in the high 80s low 90s. Patient did not demonstrate any distress during this. X-ray was completed which showed mild volume overload. Patient was diuresed with Lasix and metolazone and spironolactone. Patient did develop alkalosis and hypertension therefore diuretics were discontinued. CTA of the chest was completed which did show emphysema, mild bibasilar atelectasis but no pulmonary emboli. Risks of pulmonary toilet was given with Mucomyst, albuterol and chest CPT along with incentive spirometry to reverse to atelectasis. Patient does have a history of coronary artery disease for which he is on aspirin and statin. Patient did have a troponin leak however this was most likely secondary to his respiratory distress. Patient did not complain of any chest pain. Patient was continued on his aspirin and statin. Uncertain as to why patient is not on a beta- tc however I assume this might be secondary to his pulmonary disease. He was noted to be quite debilitated may be affecting his respiratory status; therefore, patient is being referred to [facility] for rehabilitation. Hopefully there his oxygen can also be weaned as tolerated. Physical Exam Vital Signs: Temp Pulse Resp BP Pulse Ox 98.1 F 92 16 123/50 L 91 L 09/06/17 07:23 09/06/17 10:03 09/06/17 10:03 09/06/17 07:23 09/06/17 10:03 Intake & Output 09/05/17 09/06/17 09/07/17 06:59 06:59 06:59 Intake Total 243 1055 Output Total 400 1300 Balance -157 -245 Weight 69 kg 61.8 kg General appearance: PRESENT: no acute distress, thin, well-developed, well- nourished Head exam: PRESENT: normocephalic Eye exam: PRESENT: EOMI. ABSENT: scleral icterus Ear exam: PRESENT: normal external ear exam Mouth exam: PRESENT: moist Neck exam: ABSENT: carotid bruit, JVD, lymphadenopathy, thyromegaly Respiratory exam: PRESENT: clear to auscultation patrice, decreased breath sounds. ABSENT: rales, rhonchi, wheezes Cardiovascular exam: PRESENT: RRR. ABSENT: diastolic murmur, rubs, systolic murmur Pulses: PRESENT: normal dorsalis pedis pul Vascular exam: PRESENT: normal capillary refill GI/Abdominal exam: PRESENT: normal bowel sounds, soft. ABSENT: distended, guarding, mass, organolmegaly, rebound, tenderness Rectal exam: PRESENT: deferred Extremities exam: PRESENT: full ROM. ABSENT: calf tenderness, clubbing, pedal edema Neurological exam: PRESENT: alert, awake, oriented to person, oriented to place , oriented to time, oriented to situation, CN II-XII grossly intact. ABSENT: motor sensory deficit Psychiatric exam: PRESENT: appropriate affect, normal mood. ABSENT: homicidal ideation, suicidal ideation Skin exam: PRESENT: dry, intact, warm. ABSENT: cyanosis, rash Results Laboratory Results: 09/02/17 08:35 09/05/17 07:42 09/05/17 18:20 Carbonic Acid 1.37 H HCO3/H2CO3 Ratio 25:1 ABG pH 7.51 H ABG pCO2 45.4 H ABG pO2 50.6 L ABG HCO3 35.0 H ABG O2 Saturation 88.7 L ABG Base Excess 10.4 FiO2 5LPM 08/27/17 08/27/17 08/28/17 19:44 19:44 01:40 Creatine Kinase 126 183 H CK-MB (CK-2) 2.89 Troponin I 0.083 08/28/17 08/28/17 08/28/17 01:40 08:28 08:28 Creatine Kinase 254 H CK-MB (CK-2) 4.07 5.31 H Troponin I 0.063 0.110 Impressions: Chest X-Ray 09/05/17 00:00 IMPRESSION: Mild fluid overload or congestive failure superimposed on obstructive lung disease Chest/Abdomen CTA 09/05/17 00:00 IMPRESSION: No pulmonary emboli. Emphysema. Mild bibasilar atelectasis. Transfer Plan - Disposition Transfer Plan: Patient is being transferred from here for rehabilitation and weaning of his oxygen if tolerated to maintain oxygen saturation in the low 90s while at rest and with activity. Patient is currently on 3 L of oxygen with sats in the low 90s has required up to 5 L. Patient normally wears only 2 L at night at home at baseline. Patient may need a Oxymizer. Plan is to help patient regain his strength as he is currently using a walker and did not use any walking aids previously. Patient has completed his antibiotic course however may continue to require aggressive pulmonary toilet on discharge. - Time Spent with Patient Time spent with patient: Greater than 30 Minutes Qualifiers PATEINT BEING DISCHARGED WITH ANY OF THE FOLLOWING DIAGNOSIS?: No Plan Time Spent: Greater than 30 Minutes
[2017-09-06 16:24] VITALS: BP 133/65
== END 2017-09-06 17:59 | DRG 871 ==
LOC: ER 12:25 → OBSVTOIN 17:58 → EH 17:58 → 4N 08-28 14:21 → 4S 09-04 15:16
PROVIDERS: ADMIT Internal Medicine; ATTEND Internal Medicine
PROC: 5A09557 Assistance with Respiratory Ventilation, Greater than 96 Consecutive Hours, Continuous Positive Airway Pressure (ICD-10-PCS; principal; 2017-08-29)
DX: A41.52 Sepsis due to Pseudomonas (principal); J96.21 Acute and chronic respiratory failure with hypoxia; J96.22 Acute and chronic respiratory failure with hypercapnia; I21.A1 Myocardial infarction type 2; J15.1 Pneumonia due to Pseudomonas; J15.5 Pneumonia due to Escherichia coli; J44.1 Chronic obstructive pulmonary disease with (acute) exacerbation; J44.0 Chronic obstructive pulmonary disease with (acute) lower respiratory infection; E86.0 Dehydration; D69.59 Other secondary thrombocytopenia; T36.1X5A Adverse effect of cephalosporins and other beta-lactam antibiotics, initial encounter; Y92.239 Unspecified place in hospital as the place of occurrence of the external cause; I25.10 Atherosclerotic heart disease of native coronary artery without angina pectoris; E78.5 Hyperlipidemia, unspecified; I10 Essential (primary) hypertension; Z95.5 Presence of coronary angioplasty implant and graft; F17.200 Nicotine dependence, unspecified, uncomplicated
CPT/HCPCS: 36415; 36600; 71046; 71275; 80048; 80053; 80076; 81001; 82550; 82553; 82803; 83735; 84484; 85025; 87040; 87070; 87077; 87186; 87205; 87804; 93005; 93010; 94640; 94660; 94667; 94799; 96361; 96365; 96367; 96372; 96375; 96376; 99285; G8978-GP; G8979-GP; J0456; J0692; J0696; J1650; J1956; J2920; J2930; J3490; J7030; J7060; J7512; J7620; L3908

== ENCOUNTER 2019-07-23 00:39 | Emergency (ER) | payer MEDICARE, OTHER ==
[2019-07-23 01:25] VITALS: BP 118/70
[2019-07-23 01:39] LABS: ABSOLUTE LYMPHOCYTES (AUTO) 0.7 10^3/uL (0.5-4.7); ABSOLUTE MONOCYTES (AUTO) 1.1 10^3/uL (0.1-1.4); ABSOLUTE NEUT (AUTO) 8.7 10^3/uL (1.7-8.2); BASOPHILS % (AUTO) 0.2 % (0-2); HEMATOCRIT 39.1 % (37.9-51.0); HEMOGLOBIN 12.8 g/dL (13.5-17.0); MEAN CORPUSCULAR HEMOGLOBIN 30.2 pg (27.0-33.4); MEAN CORPUSCULAR HGB CONC 32.8 g/dL (32.0-36.0); MEAN CORPUSCULAR VOLUME 92 fl (80-97); MONOCYTES % (AUTO) 10.7 % (3-13); PLATELET COUNT 177 10^3/uL (150-450); RED BLOOD COUNT 4.23 10^6/uL (4.35-5.55); RED CELL DISTRIBUTION WIDTH 14.9 % (11.5-14.0); SEGMENTED NEUTROPHILS % (AUTO) 82.1 % (42-78); TOTAL CELLS COUNTED % (AUTO) 100 %; WHITE BLOOD COUNT 10.6 10^3/uL (4.0-10.5)
[2019-07-23 01:52] LABS: ALBUMIN 3.1 g/dL (3.5-5.0); ALKALINE PHOSPHATASE 123 U/L (38-126); ANION GAP 7 (5-19); ASPARTATE AMINO TRANSFERASE 71 U/L (17-59); BILIRUBIN,DIRECT 0.3 mg/dL (0.0-0.4); BILIRUBIN,TOTAL 1.1 mg/dL (0.2-1.3); BLOOD UREA NITROGEN 20 mg/dL (7-20); CALCIUM 8.5 mg/dL (8.4-10.2); CARBON DIOXIDE 34 mmol/L (22-30); CHLORIDE 104 mmol/L (98-107); CREATINE KINASE 27 U/L (55-170); GLUCOSE 122 mg/dL (75-110); POTASSIUM 3.7 mmol/L (3.6-5.0); TOTAL PROTEIN 5.9 g/dL (6.3-8.2)
[2019-07-23 02:03] LABS: CREATINE KINASE MB 1.56 ng/mL (<4.55)
[2019-07-23 02:17] LABS: TROPONIN I 0.067 ng/mL
--- NOTE | 2019-07-23 02:32 | ER Document Report ---
ED Cardiac - General Chief Complaint: Chest Pain Stated Complaint: CHEST PAIN Time Seen by Provider: 07/23/19 01:22 Primary Care Provider: CAYDEN KNIGHT DO [Primary Care Provider] - Follow up as needed Mode of Arrival: Ambulatory Information source: Patient Notes: Patient is a 73-year-old male presenting to the emergency department with chief complaint of chest pain. Patient reports midsternal chest pain/pressure that began approximately 1 hour prior to arrival. He states he took 3 sublingual nitroglycerin at home and pain had resolved by the time he arrived to the emergency department. He reports approximately 2 weeks ago he had a heart attack with a stent placed at [facility]. He denies any associated shortness of breath but reported some nausea. All symptoms have resolved now. TRAVEL OUTSIDE OF THE [place] IN LAST 30 DAYS: No - Related Data Allergies/Adverse Reactions: No Known Allergies Allergy (Verified 08/27/17 12:27) Home Medications: Xarelto. Plavix. ASA 81mg daily. ALbuterol. Symbicort. Nitroglycerin. Metoprolol Past Medical History - General Information source: Patient - Social History Smoking Status: Current Every Day Smoker Chew tobacco use (# tins/day): No Frequency of alcohol use: None Drug Abuse: None Family History: Reviewed & Not Pertinent Patient has suicidal ideation: No Patient has homicidal ideation: No - Past Medical History Cardiac Medical History: Reports: Hx Coronary Artery Disease, Hx Heart Attack - 2 weeks ago, Hx Hypercholesterolemia, Hx Hypertension Pulmonary Medical History: Reports: Hx Bronchitis, Hx COPD, Hx Pneumonia Endocrine Medical History: Denies: Hx Diabetes Mellitus Type 1, Hx Diabetes Mellitus Type 2 Renal/ Medical History: Denies: Hx Peritoneal Dialysis Psychiatric Medical History: Denies: Hx Depression Past Surgical History: Reports: Hx Appendectomy, Hx Cardiac Catheterization - stents x6, Hx Tonsillectomy Review of Systems - Review of Systems Constitutional: No symptoms reported EENT: No symptoms reported Cardiovascular: See HPI Respiratory: No symptoms reported Gastrointestinal: No symptoms reported Genitourinary: No symptoms reported Male Genitourinary: No symptoms reported Musculoskeletal: No symptoms reported Skin: No symptoms reported Hematologic/Lymphatic: No symptoms reported Neurological/Psychological: No symptoms reported Physical Exam - Vital signs Vitals: Resp Pulse Ox 23 H 77 L 07/23/19 00:58 07/23/19 00:58 - Notes Notes: PHYSICAL EXAMINATION: GENERAL: Well-appearing, well-nourished and in no acute distress. HEAD: Atraumatic, normocephalic. EYES: Pupils equal round and reactive to light, extraocular movements intact, sclera anicteric, conjunctiva are normal. ENT: Nares patent, oropharynx clear without exudates. Moist mucous membranes. NECK: Normal range of motion, supple without lymphadenopathy LUNGS: Breath sounds clear to auscultation bilaterally and equal. No wheezes rales or rhonchi. HEART: Regular rate and rhythm without murmurs ABDOMEN: Soft, nontender, nondistended abdomen. No guarding, no rebound. No masses appreciated. Musculoskeletal: Normal range of motion, no pitting or edema. No cyanosis. NEUROLOGICAL: Cranial nerves grossly intact. Normal speech, normal gait. Normal sensory, motor exams PSYCH: Normal mood, normal affect. SKIN: Warm, Dry, normal turgor, no rashes or lesions noted. Course - Re-evaluation Re-evalutation: 07/23/19 02:31 Call placed to [facility] to speak with cardiology due to patient's elevated troponin and recent cardiac catheterization done on 07/08/2019. 07/23/19 02:56 Spoke with [facility] prison officer PA for cardiology, Kindra Barrera. We discussed patient's troponin of 0.067. She states while patient was there patient had a troponin of 13.7, she feels this is probably residual from h is previous non-STEMI. She recommends repeating a troponin again in 3 hours. Repeat troponin has come down some. Per the recommendation of his cardiology team at [facility], jeremias to discharge patient home. Patient has remained chest pain-free during his stay in the emergency department. His EKG showed a sinus rhythm with no ST segment elevations or depressions to suggest ischemia, this was compared with previous EKG on file which was also unchanged. - Vital Signs Vital signs: Temp Pulse Resp BP Pulse Ox 98.4 F 20 118/70 93 07/23/19 00:59 07/23/19 01:01 07/23/19 01:00 07/23/19 01:26 - Laboratory Result Diagrams: 07/23/19 01:21 07/23/19 01:21 Laboratory results interpreted by me: 07/23/19 07/23/19 01:21 01:21 WBC 10.6 H RBC 4.23 L Hgb 12.8 L RDW 14.9 H Lymph % (Auto) 7.0 L Absolute Neuts (auto) 8.7 H Seg Neutrophils % 82.1 H Sodium 145.2 H Carbon Dioxide 34 H Glucose 122 H AST 71 H Creatine Kinase 27 L Total Protein 5.9 L Albumin 3.1 L Discharge - Discharge Clinical Impression: Chest pain Qualifiers: Chest pain type: unspecified Qualified Code(s): R07.9 - Chest pain, unspecified Condition: Stable Disposition: HOME, SELF-CARE Additional Instructions: [facility] of [facility] I called and spoke with the on-call provider for your cardiology group, DIANA Jason. We discussed your most recent cardiac markers on file at [facility] and we also discussed your cardiac markers here [facility]. It does not appear that you are having an acute cardiac event. She would like you to keep any and all follow-up appointments that you have with her team. Call them Saturday and let them know you are seen in the emergency department and that we spoke with this provider. If you have any worsening chest pain please take sublingual nitroglycerin as prescribed by your cardiology team and return to the emergency department. We are happy to reevaluate you at any time. Referrals: CAYDEN KNIGHT, DO [Primary Care Provider] - Follow up as needed
--- NOTE | 2019-07-24 12:16 | EKG REPORT ---
SEVERITY:- ABNORMAL ECG - SINUS TACHYCARDIA LEFT ANTERIOR FASCICULAR BLOCK PROBABLE ANTEROSEPTAL INFARCT, AGE INDETERM : Confirmed by: Elina Peter 24-Jul-2019 12:15:18
== END 2019-07-23 06:08 | disposition home or self-care (01) ==
LOC: ER 00:39
DX: R07.9 Chest pain, unspecified (principal); R11.0 Nausea; Z79.01 Long term (current) use of anticoagulants; Z79.899 Other long term (current) drug therapy; Z79.82 Long term (current) use of aspirin; F17.200 Nicotine dependence, unspecified, uncomplicated; I25.10 Atherosclerotic heart disease of native coronary artery without angina pectoris; I25.2 Old myocardial infarction; I10 Essential (primary) hypertension; J44.9 Chronic obstructive pulmonary disease, unspecified
CPT/HCPCS: 36415; 80053; 82550; 82553; 84484; 85025; 93005; 93010; 99285